=== PATIENT | female | born 1955 | race Caucasian/White ===

== ENCOUNTER → 2016-10-01 | Outpatient (CLI) | payer OTHER ==
[2016-04-11 15:31] VITALS: BP 108/67
[2016-10-01 16:48] LABS: BASOPHILS # (AUTO) 0.1 X10^3/uL (0.0-0.1); BASOPHILS % (AUTO) 0.8 % (0.2-1.0); EOSINOPHILS # (AUTO) 0.2 x10^3/uL (0.0-0.2); EOSINOPHILS % (AUTO) 1.5 % (0.9-2.9); HEMATOCRIT 39.2 % (36.0-47.0); HEMOGLOBIN 13.3 g/dL (12.0-16.0); LYMPHOCYTES # (AUTO) 2.2 X10^3/uL (1.3-2.9); LYMPHOCYTES % (AUTO) 18.9 % (21.0-51.0); MEAN CORPUSCULAR VOLUME 91.2 fL (80.0-100.0); MEAN PLATELET VOLUME 7.7 fL (7.4-11.0); MONOCYTES # (AUTO) 0.6 x10^3/uL (0.3-0.8); MONOCYTES % (AUTO) 5.4 % (0.0-13.0); NEUTROPHILS # (AUTO) 8.7 x10^3/uL (2.2-4.8); NEUTROPHILS % (AUTO) 73.4 % (42.0-75.0); PLATELET COUNT 287 X10^3/uL (150.0-450.0); RED CELL DISTRIBUTION WIDTH 15.2 % (11.6-16.5); WHITE BLOOD COUNT 11.8 X10^3/uL (3.6-10.0)
[2016-10-01 16:55] LABS: BLOOD UREA NITROGEN 15 mg/dL (7-18); CALCIUM 8.7 mg/dL (8.5-10.1); CARBON DIOXIDE 29.6 mmol/L (21-32); CHLORIDE 100 mmol/L (98-107); CREATININE 0.86 mg/dL (0.55-1.02); GLUCOSE 92 mg/dL (65-99); SODIUM 138 mmol/L (136-145); eGFR BLACK RACES > 60 (>60); eGFR NON BLACK RACES > 60 (>60)
[2016-10-02 05:15] LABS: HEMOGLOBIN A1C 6.3 % (4.5-6.2)
== END ==
LOC: LAB 16:29
PROVIDERS: ATTEND Nurse Practitioner Family
DX: N28.89 Other specified disorders of kidney and ureter (principal); Z79.899 Other long term (current) drug therapy
CPT/HCPCS: 36415; 80048; 83036; 85025

== ENCOUNTER → 2016-12-07 | Outpatient (CLI) | payer OTHER ==
[2016-04-11 15:31] VITALS: BP 108/67
--- NOTE | 2016-12-07 15:25 | RAD ---
HISTORY: Right knee pain Study: 3 views of the right knee Comparison: None Findings: No acute fractures or dislocations. Joint spaces are maintained. No knee joint effusion. Soft tissue s are unremarkable. IMPRESSION: 1. No acute abnormality of the right knee. Reported By:
--- NOTE | 2016-12-07 15:28 | RAD ---
HISTORY: Knee pain Study: 3 views of the left knee Comparison: None Findings: No acute fractures or dislocations. Joint spaces are maintained. No knee joint effusion. Soft tissue s are unremarkable. IMPRESSION: 1. No acute abnormality of the left knee. Reported By:
== END ==
LOC: RAD 14:37
PROVIDERS: ATTEND Nurse Practitioner Family
DX: M25.661 Stiffness of right knee, not elsewhere classified (principal)
CPT/HCPCS: 73560

== ENCOUNTER → 2016-12-09 | Outpatient (CLI) | payer OTHER ==
[2016-04-11 15:31] VITALS: BP 108/67
[2016-12-09 08:50] LABS: BASOPHILS # (AUTO) 0.1 X10^3/uL (0.0-0.1); BASOPHILS % (AUTO) 1.2 % (0.2-1.0); EOSINOPHILS # (AUTO) 0.1 x10^3/uL (0.0-0.2); EOSINOPHILS % (AUTO) 1.5 % (0.9-2.9); HEMATOCRIT 40.8 % (36.0-47.0); HEMOGLOBIN 14.4 g/dL (12.0-16.0); LYMPHOCYTES # (AUTO) 1.8 X10^3/uL (1.3-2.9); LYMPHOCYTES % (AUTO) 23.9 % (21.0-51.0); MEAN CORPUSCULAR HEMOGLOBIN 32.5 pg (27.0-34.0); MEAN CORPUSCULAR HGB CONC 35.2 g/dL (33.0-35.0); MEAN CORPUSCULAR VOLUME 92.2 fL (80.0-100.0); MONOCYTES # (AUTO) 0.4 x10^3/uL (0.3-0.8); MONOCYTES % (AUTO) 5.4 % (0.0-13.0); NEUTROPHILS # (AUTO) 5.2 x10^3/uL (2.2-4.8); PLATELET COUNT 304 X10^3/uL (150.0-450.0); RED BLOOD COUNT 4.43 X10^6/uL (3.5-5.4); RED CELL DISTRIBUTION WIDTH 15.5 % (11.6-16.5); RETICULOCYTE % 1.57 % (0.8-2.2); WHITE BLOOD COUNT 7.7 X10^3/uL (3.6-10.0)
[2016-12-09 08:55] LABS: ALANINE AMINOTRANSFERASE 26 Units/L (12-78); ALBUMIN 3.6 g/dL (3.4-5.0); ALKALINE PHOSPHATASE 88 Units/L (46-116); ASPARTATE AMINO TRANSFERASE 16 Units/L (15-37); BLOOD UREA NITROGEN 10 mg/dL (7-18); CALCIUM 8.4 mg/dL (8.5-10.1); CARBON DIOXIDE 27.4 mmol/L (21-32); CHLORIDE 102 mmol/L (98-107); CHOL/HDL RATIO 3.2 (0.0-5.0); CHOLESTEROL 142 mg/dL (0-200); CREATININE 0.81 mg/dL (0.55-1.02); GLUCOSE 100 mg/dL (65-99); HDL CHOLESTEROL 44 mg/dL (40-60); SODIUM 138 mmol/L (136-145); TOTAL PROTEIN 6.9 g/dL (6.4-8.2); TRIGLYCERIDES 83 mg/dL (0-150); eGFR BLACK RACES > 60 (>60); eGFR NON BLACK RACES > 60 (>60)
[2016-12-09 09:41] LABS: ERYTHROCYTE SEDIMENTATION RATE 18 MM/HOUR (0-20)
[2016-12-11 06:25] LABS: VITAMIN D 25 OH 22 ng/mL (30-80)
[2016-12-11 12:41] LABS: METHYLMALONIC ACID 0.11 umol/L (0.00-0.40)
== END ==
LOC: LAB 08:09
PROVIDERS: ATTEND Nurse Practitioner Family
DX: M81.0 Age-related osteoporosis without current pathological fracture (principal); K14.0 Glossitis; R73.02 Impaired glucose tolerance (oral); M25.661 Stiffness of right knee, not elsewhere classified; Z95.1 Presence of aortocoronary bypass graft; Z79.899 Other long term (current) drug therapy
CPT/HCPCS: 36415; 80053; 80061; 82306; 82607; 82615; 82746; 83036; 83918; 85025; 85045; 85652; 86140; 86256; 86340

== ENCOUNTER → 2016-12-15 | Outpatient (CLI) | payer OTHER ==
[2016-04-11 15:31] VITALS: BP 108/67
--- NOTE | 2016-12-15 14:00 | MG ---
HISTORY: SCREENING Comparison: 06/04/2015 FINDINGS: Bilateral CC and MLO projections of the right and left breast were obtained. . fibroglandular tissu e is seen to be present. No significant architectural distortion, mass or clustered microcalcificat ions can be observed to suggest malignancy. No skin thickening or nipple retraction is appreciated. No pathological lymphadenopathy can be identified. IMPRESSION: NO RADIOGRAPHIC EVIDENCE OF MALIGNANCY. ACR CATEGORY I - NEGATIVE EXAM. FOLLOW-UP EXAM 1 YEAR. Diagnostic CAD was utilized and reviewed. * 0 (ZERO) - ASSESSMENT INCOMPLETE; ADDITIONAL IMAGING IS NEEDED. * 1/ (ONE) - NEGATIVE. * 2/II (TWO) - BENIGN FINDINGS. * 3/III (THREE) - PROBABLY BENIGN FINDING; SHORT INTERVAL FOLLOW-UP SUGGESTED. * 4/IV (FOUR) - SUSPICIOUS ABNORMALITY; BIOPSY SHOULD BE CONSIDERED. * 5/V - HIGHLY SUSPICIOUS OF MALIGNANCY; BIOPSY SHOULD BE PERFORMED. A NEGATIVE X-RAY REPORT SHOULD NOT DELAY BIOPSY IF A DOMINANT OR CLINICALLY SUSPICIOUS MASS IS PRESENT; 4 TO 8 PERCENT OF CANCERS ARE NOT IDENTIFIED BY X-RAY. A NEG ATIVE REPORT MAY REINFORCE THE CLINICAL IMPRESSION. ADENOSIS AND DENSE BREASTS MAY OBSCURE AN UNDER LYING NEOPLASM. Reported By:
== END ==
LOC: RAD 09:51
PROVIDERS: ATTEND Nurse Practitioner Family
DX: Z12.31 Encounter for screening mammogram for malignant neoplasm of breast (principal)
CPT/HCPCS: 77067

== ENCOUNTER → 2017-07-27 | Outpatient (CLI) | payer OTHER ==
[2016-04-11 15:31] VITALS: BP 108/67
--- NOTE | 2017-07-28 08:35 | RAD ---
HISTORY: Cough Study: Two views of the chest Comparison: None Findings: The trachea is midline. The cardiac silhouette is unremarkable. subsegmental atelectasis and/or sca rring are noted within the mid right lung. Otherwise the lungs are clear without focal infiltrate or effusion. Aortic knob is partially calcified. Postoperative changes of midline sternotomy are note d. IMPRESSION: 1. No acute cardiopulmonary disease. Reported By:
== END ==
LOC: RAD 16:42
PROVIDERS: ATTEND Psychiatry & Neurology Neurology
DX: J44.0 Chronic obstructive pulmonary disease with (acute) lower respiratory infection (principal)
CPT/HCPCS: 71046

== ENCOUNTER → 2017-09-07 | Outpatient (CLI) | payer OTHER ==
[2016-04-11 15:31] VITALS: BP 108/67
--- NOTE | 2017-09-07 12:56 | RAD ---
Indication: Cough Exam: PA and lateral Comparison: 07/27/2017 Findings: The heart is normal. The pulmonary vessels are normal. The lungs are mildly hyperinflated a nd emphysematous. No consolidation or effusion is seen. There are postop changes seen along the media stinum and sternum. There is mild linear scarring along the lung bases which is unchanged. Impression: Stable chronic changes with no acute abnormality seen. Reported By:
== END ==
LOC: RAD 11:57
PROVIDERS: ATTEND Psychiatry & Neurology Neurology
DX: R05 Cough (principal)
CPT/HCPCS: 71046

== ENCOUNTER → 2017-09-14 | Outpatient (CLI) | payer OTHER ==
[2016-04-11 15:31] VITALS: BP 108/67
[~2017-09-14] MED LIST: NS 100 ML IV 100 ML IV ONE
[2017-09-14 08:59] LABS: CREATININE 0.89 mg/dL (0.55-1.02)
--- NOTE | 2017-09-15 10:26 | CT ---
History: Cough for 3 weeks, previous CABG with stents Study: CT chest without with contrast Findings: [address] imaging through the chest is performed prior to and during the intravenous administration 100 mL of Omnipaque 350. Coronal and sagittal reformatted images are submitted as well . There are no previous CTs of the chest for comparative purposes. Sternal metallic sutures mediastin al clips, coronary stents and coronary calcification is noted. The thoracic aorta is normal in calibe r with no evidence of dissection. No mediastinal or hilar mass or adenopathy is seen. Lungs are clear and there are no pleural effusions. Visualized upper abdominal structures appear unremarkable. Impression: Previous CABG with coronary stents as well. CT of the chest is otherwise Reported By:
== END ==
LOC: RAD 08:32
PROVIDERS: ATTEND Psychiatry & Neurology Neurology
DX: R05 Cough (principal)
CPT/HCPCS: 36415; 71270; 82565; 84520; A4222

== ENCOUNTER → 2017-09-23 | Outpatient (CLI) | payer OTHER ==
[2016-04-11 15:31] VITALS: BP 108/67
== END ==
LOC: RAD 14:10
PROVIDERS: ATTEND Psychiatry & Neurology Neurology
DX: R05 Cough (principal)
CPT/HCPCS: 93306

== ENCOUNTER 2017-10-17 11:41 | Emergency (ER) | payer OTHER ==
[2017-10-17 11:49] VITALS: BP 122/60; BMI 25.7
--- NOTE | 2017-10-17 13:18 | DR.GENAD ---
HPI - PCP Primary Care Physician: LAXMI TysonP - HPI Comment HPI Comment: HISTORY BELOW. - Complaint/Symptoms Chief Complaint Doctors Comments: BODYACHES, TOE PAINS AND COUGH AND CONGESTION TIMES WEEKS. PAST FEW DAYS GETTING WORSE. ALSO HAVING CHEST PAIN AND INCREASING COUGH. LOW GRADE FEVER PRESENT. NO DYSURIA. Chief Complaint:: Pt states she has been sick with coughing/bronchitis since March. Pt has had soreness all over her body but Wednesday her toes and fingers got so sore she coud hardly move - Nurses notes reviewed Nurses Notes Review: Yes - Source History Provided: Patient - Mode of Arrival Mode of Arrival: Ambulatory - Timing Onset of Chief Complaint: 10/20/17 Came on: Suddenly - Duration Duration: Constant Duration: Days - Severity Severity: Moderate PMH - PMH Past Medical History: Yes Past Medical History: Anemia, Anxiety, Arthritis, Asthma, CHF, Coronary Artery Disease, Dyslipidemia, GERD, Gout, Hypertension, Hypothyroidism Past Surgical History: Yes Surgical History: Angioplasty/Stents, Appendectomy, CABG/Valve Surgery, Hysterectomy Past Surgical History Comment: lumpectomy from right breast, multiple skin cancers removed - Family History History of Family Medical Conditions: Yes Family Medical History: Diabetes Mellitus, Coronary Artery Disease Family Medical History Comment: CKD - Social History Does any household member use tobacco: No Alcohol Use: None Do you use any recreational Drugs:: No Lives Where: Home - infectious screening In the last 2 months have you had wt loss of >10#?: NO Have you had fever, night sweats or hemotysis?: No Have you traveled outside the country in the last 6 months?: No Isolation: Standard ROS - Review of Systems Constitutional: Fever, Weakness, Fatigue. negative: Chills Eyes: No Symptoms Reported. negative: Eye Pain, Discharge ENTM: Nose Congestion. negative: Ear Pain, Nose Discharge, Throat Pain Respiratoy: Productive Cough, Short of Breath, Wheezing. negative: Hemoptysis Cardiovascular: Chest Pain (CHEST WALL PAIN) Gastrointestinal/Abdominal: No Symptoms Reported Genitourinary: No Symptoms Reported Neurological: Weakness. negative: Headache, Dizziness Musculoskeletal: Muscle Pain Integumentary: No Symptoms Reported Hematologic/Lymphatic: No Symptoms Reported Endocrine: No Symptoms Reported All Other Systems: Reviewed and Negative PE - Vital Signs Vitals: Temperature 99.0 F Pulse Rate 103 Respiratory Rate 20 Blood Pressure [Left Arm] 106/72 Blood Pressure 122/60 O2 Sat by Pulse Oximetry 95 - General Limitations: No Limitations General Appearance: Alert - Head Head Exam: Normal Inspection - Eyes Eye exam: Normal Appearance - ENT ENT Exam: Normal External Ear Exam External Ear Exam: Normal External Inspection TM/Canal Exam: Bilateral Normal Nose Exam: Normal Nose Exam Mouth Exam: Normal Inspection Throat Exam: Normal Inspection - Neck Neck Exam: Trachea Midline - Chest Chest Inspection: Symmetric Chest Wall Rise - Respiratory Respiratory Exam: Normal Lung Sounds Bilat Respiratory Exam: Bilateral Clear to Auscultation - Cardiovascular Cardiovascular Exam: Regular Rate, Normal Rhythm, Normal Heart Sounds - Abdominal Exam Abdominal Exam: Normal Bowel Sounds, Soft. negative: Tenderness - Extremities Extremities Exam: Normal Inspection - Back Back Exam: Normal Inspection - Neurologic Neurological Exam: Alert, Oriented X3 - Psychiatric Psychiatric Exam: Normal Affect, Normal Mood - Skin Skin Exam: Normal Color MDM - Additional Information Additional Information Obtained From: Family - Differential Diagnosis Differential Diagnosis: CHEST PAIN, BRONCHITIS, PNEUMONIA, MYALGIA, NEUROPATHY. Course - Treatment Treatment: SEE ORDERS. - Education/Counseling Education/Counseling: Patient, Education Educated On: Diagnosis, Needs for Follow Up ROR - Labs Reviewed Laboratory Results Reviewed?: Yes Result Diagrams: 10/17/17 13:41 10/17/17 13:41 Laboratory: WBC 10.8 X10^3/uL (3.6-10.0) H 10/17/17 13:41 RBC 4.28 X10^6/uL (3.5-5.4) 10/17/17 13:41 Hgb 13.7 g/dL (12.0-16.0) 10/17/17 13:41 Hct 38.6 % (36.0-47.0) 10/17/17 13:41 MCV 90.3 fL (80.0-100.0) 10/17/17 13:41 MCH 32.1 pg (27.0-34.0) 10/17/17 13:41 MCHC 35.5 g/dL (33.0-35.0) H 10/17/17 13:41 RDW 15.1 % (11.6-16.5) 10/17/17 13:41 Plt Count 305 X10^3/uL (150.0-450.0) 10/17/17 13:41 MPV 7.8 fL (7.4-11.0) 10/17/17 13:41 Neut % (Auto) 78.4 % (42.0-75.0) H 10/17/17 13:41 Lymph % (Auto) 15.3 % (21.0-51.0) L 10/17/17 13:41 [place] % (Auto) 5.2 % (0.0-13.0) 10/17/17 13:41 Eos % (Auto) 0.6 % (0.9-2.9) L 10/17/17 13:41 Baso % (Auto) 0.5 % (0.2-1.0) 10/17/17 13:41 Neut # (Auto) 8.5 x10^3/uL (2.2-4.8) H 10/17/17 13:41 Lymph # (Auto) 1.7 X10^3/uL (1.3-2.9) 10/17/17 13:41 [place] # (Auto) 0.6 x10^3/uL (0.3-0.8) 10/17/17 13:41 Eos # (Auto) 0.1 x10^3/uL (0.0-0.2) 10/17/17 13:41 Baso # (Auto) 0.1 X10^3/uL (0.0-0.1) 10/17/17 13:41 Absolute Nucleated RBC 0.0 /100WBC 10/17/17 13:41 D-Dimer 399 ng/mL (0-400) 10/17/17 13:41 Sample Site Lr 10/17/17 15:55 ABG pH 7.470 (7.35-7.45) H 10/17/17 15:55 ABG pCO2 41.0 mmHg (35.0-45.0) 10/17/17 15:55 ABG pO2 67.0 mmHg (80.0-100.0) L 10/17/17 15:55 ABG HCO3 29.8 mmol/L (22-26) H 10/17/17 15:55 ABG O2 Saturation 94.0 % (90-100) 10/17/17 15:55 ABG Base Excess 5.6 mmol/L (-2.0-2.0) H 10/17/17 15:55 Arie Test Pos 10/17/17 15:55 A-a Gradient 31.0 mmHg 10/17/17 15:55 FiO2 21.000 10/17/17 15:55 Blood Gas Comments Pt zbigniew well. cdn 10/17/17 15:55 Sodium 134 mmol/L (136-145) L 10/17/17 13:41 Corrected Sodium 134 mmol/L (136-145) L 10/17/17 13:41 Potassium 3.9 mmol/L (3.5-5.1) 10/17/17 13:41 Chloride 97 mmol/L (98-107) L 10/17/17 13:41 Carbon Dioxide 31.9 mmol/L (21-32) 10/17/17 13:41 BUN 15 mg/dL (7-18) 10/17/17 13:41 Creatinine 0.87 mg/dL (0.55-1.02) 10/17/17 13:41 Est GFR (MDRD) Af Amer > 60 (>60) 10/17/17 13:41 Est GFR (MDRD) Non-Af > 60 (>60) 10/17/17 13:41 Glucose 115 mg/dL (65-99) H 10/17/17 13:41 Calcium 9.0 mg/dL (8.5-10.1) 10/17/17 13:41 Corrected Calcium TNP 10/17/17 13:41 Total Bilirubin 0.40 mg/dL (0.2-1.0) 10/17/17 13:41 AST 18 Units/L (15-37) 10/17/17 13:41 ALT 24 Units/L (12-78) 10/17/17 13:41 Alkaline Phosphatase 89 Units/L (46-116) 10/17/17 13:41 Creatine Kinase 119 Units/L (26-192) 10/17/17 13:41 CK-MB (CK-2) < 1.0 ng/mL (0-4.0) 10/17/17 13:41 CK/CKMB % Calc 0.8 % (<4) 10/17/17 13:41 Troponin I < 0.02 ng/mL (0-1.5) 10/17/17 13:41 Total Protein 7.8 g/dL (6.4-8.2) 10/17/17 13:41 Albumin 3.9 g/dL (3.4-5.0) 10/17/17 13:41 Globulin 3.9 g/dL (2.5-4.5) 10/17/17 13:41 Albumin/Globulin Ratio 1.0 Ratio (1.1-2.1) L 10/17/17 13:41 Specimen Type Random urine 10/17/17 14:50 Urine Color Yellow (YELLOW) 10/17/17 14:50 Urine Appearance Clear (CLEAR) 10/17/17 14:50 Urine pH 6.5 (5.0 - 8.0) 10/17/17 14:50 Ur Specific [place] 1.010 (1.000-1.030) 10/17/17 14:50 Urine Protein Negative (NEGATIVE) 10/17/17 14:50 Urine Glucose (UA) Negative (NEGATIVE) 10/17/17 14:50 Urine Ketones Negative (NEGATIVE) 10/17/17 14:50 Urine Occult Blood 1+ (NEGATIVE) 10/17/17 14:50 Urine Nitrite Negative (NEGATIVE) 10/17/17 14:50 Urine Bilirubin Negative (NEGATIVE) 10/17/17 14:50 Urine Urobilinogen Normal (NORMAL) 10/17/17 14:50 Ur Leukocyte Esterase Negative (NEGATIVE) 10/17/17 14:50 Urine RBC 0-2 /HPF (NONE SEEN) 10/17/17 14:50 Urine WBC None seen /HPF (NONE SEEN) 10/17/17 14:50 Ur Squamous Epith Cells Negative /HPF (NEGATIVE) 10/17/17 14:50 Urine Bacteria Negative /HPF (NEGATIVE) 10/17/17 14:50 Ur Culture Indicated? No/not indicated 10/17/17 14:50 - XRAY XRAY Findings: REPORT DISCUSS WITH PATIENT. - Diagnosis Discharge Problem: Bronchitis, SOB (shortness of breath), Myalgia, Neuropathic pain Chest pain Qualifiers: Chest pain type: intercostal pain Qualified Code(s): R07.82 - Intercostal pain - Discharge Plan Disposition: 01 HOME, SELF-CARE Condition: Stable Prescriptions: Benzonatate [TESSALON PERLES *] 200 mg PO TID PRN #30 cap PRN Reason: Cough Ibuprofen [MOTRIN TAB 800 MG *] 800 mg PO Q8H PRN #20 tab PRN Reason: Pain/Inflammation - Follow ups/Referrals Follow ups/Referrals: NFD,None [Primary Care Provider] - 10/18/17 - Instructions Instructions: Shortness of Breath, Adult, [id number], Acute Bronchitis, Adult , [id number], Chest Pain Observation Additional Instructions: RETURN TO ED IF WORSE.
--- NOTE | 2017-10-17 13:42 | RAD ---
HISTORY: Chest pain and shortness of breath. Study: PA and lateral chest. Comparison: CT chest dated September 14, 2017 and chest x-ray dated September 07, 2017. Findings: The trachea is midline. The cardiac silhouette is unremarkable. Postsurgical changes status post CA BG. Left basilar scarring versus atelectasis. Chronic emphysematous changes. No obvious focal consoli dation, pleural effusion, or pneumothorax. The bony thorax is unremarkable. IMPRESSION: No acute cardiopulmonary disease. Reported By:
[2017-10-17 13:53] LABS: BASOPHILS # (AUTO) 0.1 X10^3/uL (0.0-0.1); BASOPHILS % (AUTO) 0.5 % (0.2-1.0); EOSINOPHILS # (AUTO) 0.1 x10^3/uL (0.0-0.2); EOSINOPHILS % (AUTO) 0.6 % (0.9-2.9); HEMATOCRIT 38.6 % (36.0-47.0); HEMOGLOBIN 13.7 g/dL (12.0-16.0); LYMPHOCYTES # (AUTO) 1.7 X10^3/uL (1.3-2.9); LYMPHOCYTES % (AUTO) 15.3 % (21.0-51.0); MEAN CORPUSCULAR HEMOGLOBIN 32.1 pg (27.0-34.0); MEAN CORPUSCULAR HGB CONC 35.5 g/dL (33.0-35.0); MEAN CORPUSCULAR VOLUME 90.3 fL (80.0-100.0); MEAN PLATELET VOLUME 7.8 fL (7.4-11.0); MONOCYTES # (AUTO) 0.6 x10^3/uL (0.3-0.8); MONOCYTES % (AUTO) 5.2 % (0.0-13.0); NEUTROPHILS # (AUTO) 8.5 x10^3/uL (2.2-4.8); NEUTROPHILS % (AUTO) 78.4 % (42.0-75.0); PLATELET COUNT 305 X10^3/uL (150.0-450.0); RED BLOOD COUNT 4.28 X10^6/uL (3.5-5.4); RED CELL DISTRIBUTION WIDTH 15.1 % (11.6-16.5); WHITE BLOOD COUNT 10.8 X10^3/uL (3.6-10.0)
[2017-10-17 14:09] LABS: BLOOD UREA NITROGEN 15 mg/dL (7-18); CARBON DIOXIDE 31.9 mmol/L (21-32); CHLORIDE 97 mmol/L (98-107); COR NA(FOR HYPERGLY) 134 mmol/L (136-145); CREATININE 0.87 mg/dL (0.55-1.02); SODIUM 134 mmol/L (136-145); TROPONIN I < 0.02 ng/mL (0-1.5); eGFR BLACK RACES > 60 (>60); eGFR NON BLACK RACES > 60 (>60)
[2017-10-17 14:13] LABS: ALANINE AMINOTRANSFERASE 24 Units/L (12-78); ALBUMIN 3.9 g/dL (3.4-5.0); ALKALINE PHOSPHATASE 89 Units/L (46-116); ASPARTATE AMINO TRANSFERASE 18 Units/L (15-37); CREATINE KINASE 119 Units/L (26-192); CREATINE KINASE MB < 1.0 ng/mL (0-4.0); TOTAL PROTEIN 7.8 g/dL (6.4-8.2)
[2017-10-17 14:15] LABS: CKMB % 0.8 % (<4)
[2017-10-17 14:59] LABS: BILIRUBIN,URINE NEGATIVE (NEGATIVE); BLOOD/HEMOGLOBIN,URINE 1+ (NEGATIVE); GLUCOSE, URINE NEGATIVE (NEGATIVE); KETONES,URINE NEGATIVE (NEGATIVE); LEUKOCYTE ESTERASE ,URINE NEGATIVE (NEGATIVE); NITRITES,URINE NEGATIVE (NEGATIVE); PH,URINE 6.5 (5.0 - 8.0); PROTEIN,URINE NEGATIVE (NEGATIVE); UROBILINOGEN,URINE NORMAL (NORMAL)
[2017-10-17 15:00] LABS: APPEARANCE,URINE CLEAR (CLEAR); COLOR,URINE YELLOW (YELLOW)
[2017-10-17 15:05] LABS: BACTERIA,URINE NEGATIVE /HPF (NEGATIVE); RBC,URINE 0-2 /HPF (NONE SEEN); SQUAMOUS EPITHELIAL CELL,UR NEGATIVE /HPF (NEGATIVE)
[2017-10-17 16:01] LABS: ABG ALLEN TEST POS; ABG BASE EXCESS 5.6 mmol/L (-2.0-2.0); ABG HCO3 29.8 mmol/L (22-26)
== END 2017-10-17 16:39 | disposition home or self-care (01) ==
LOC: ER 11:51
DX: J40 Bronchitis, not specified as acute or chronic (principal); R06.02 Shortness of breath; M79.1 Myalgia; M79.2 Neuralgia and neuritis, unspecified; R07.82 Intercostal pain; R94.31 Abnormal electrocardiogram [ECG] [EKG]
CPT/HCPCS: 36415; 36600; 71046; 80053; 81001; 82550; 82553; 82803; 84484; 85025; 85378; 93005; 93010; 99283

== ENCOUNTER → 2017-11-08 | Outpatient (CLI) | payer OTHER ==
[2017-10-17 11:49] VITALS: BP 122/60
--- NOTE | 2017-11-08 11:59 | CT ---
HISTORY: Subacute history of syncope, fall, neck pain Study: CT brain without contrast Comparison: June 04, 2014 Technique: Multiple axial images of the brain were obtained from the skull base to the vertex withou t administration of IV contrast. Findings: No acute intraparenchymal hemorrhage or mass can be identified. No extra-axial fluid collections are seen. No alteration in the attenuation of the brain parenchyma can be identified to suggest acute o r subacute ischemic change. The ventricular system is symmetric and nondilated. The extracranial st ructures are grossly unremarkable. IMPRESSION: No acute intracranial process can be identified. Reported By:
--- NOTE | 2017-11-08 12:23 | CT ---
Indication: Status post fall 1 week ago with persistent neck pain. Exam: CT cervical spine without contrast. Comparison: MRI cervical spine 01/14/2010. Technique: Axial spiral images were obtained from the base the skull through the upper thoracic spine and reconstructed in the axial plane at 2 mm intervals. Coronal and sagittal multiplanar reconstruct ions were performed. Findings: The cervical vertebra are well aligned. There is a mild compression deformity along the sup erior endplate of C7 which is grossly unchanged from the prior MRI . There is moderate disc space yuriy rowing throughout the lower cervical spine which is most severe at C5-6 and C6-7 with prominent howard nal osteophytes at both levels. No displaced or retropulsed fragment is seen. The posterior elements are intact. The prevertebral soft tissues are normal. The atlantoaxial joint is normal. There are ill -defined moderate disc osteophyte complexes at C5-6 and C6-7 causing at least moderately severe dural sac compression. There is mild mucosal thickening along the base of left maxillary sinus. The lung a pices are clear. Impression: Mild old compression fracture of C7 which is unchanged with no acute abnormality seen. Moderate degenerative disc changes throughout the lower cervical spine which is most severe at C5-6 a nd C6-7 with prominent disc osteophyte complexes at both levels . If the patient is persistently symp tomatic, suggest MRI for further characterization of the discs. Reported By:
== END ==
LOC: RAD 10:46
PROVIDERS: ATTEND Psychiatry & Neurology Neurology
DX: M50.322 Other cervical disc degeneration at C5-C6 level (principal); Z91.81 History of falling; R42 Dizziness and giddiness
CPT/HCPCS: 70450; 72125

== ENCOUNTER 2020-01-24 22:02 | Observation (INO) ==
[~2020-01-24 22:02] MED LIST changes: +DIPRIVAN VIAL ONE; +NEOSTIGMINE INJ ONE; +NORCURON INJ 10 MG VIAL ONE; -NS 100 ML IV 100 ML IV ONE; +QUELICIN (OR ANECTINE) ONE; +ROBINUL ONE; +SUPRANE ONE; +TORADOL 30 MG VIAL ONE; +VERSED ONE; +ZOFRAN INJ 4 MG VIAL ONE
[2020-01-24 22:48] LABS: BASOPHILS % (AUTO) 0.2 % (0.2-1.0); EOSINOPHILS # (AUTO) 0.1 x10^3/uL (0.0-0.2); EOSINOPHILS % (AUTO) 1.1 % (0.9-2.9); HEMATOCRIT 35.5 % (36.0-47.0); LYMPHOCYTES # (AUTO) 0.4 X10^3/uL (1.3-2.9); LYMPHOCYTES % (AUTO) 3.8 % (21.0-51.0); MEAN CORPUSCULAR HEMOGLOBIN 31.3 pg (27.0-34.0); MEAN CORPUSCULAR HGB CONC 33.8 g/dL (33.0-35.0); MEAN CORPUSCULAR VOLUME 92.7 fL (80.0-100.0); MEAN PLATELET VOLUME 7.8 fL (7.4-11.0); MONOCYTES # (AUTO) 0.3 x10^3/uL (0.3-0.8); NEUTROPHILS # (AUTO) 9.8 x10^3/uL (2.2-4.8); NEUTROPHILS % (AUTO) 91.9 % (42.0-75.0); PLATELET COUNT 226 X10^3/uL (150.0-450.0); RED BLOOD COUNT 3.83 X10^6/uL (3.5-5.4); RED CELL DISTRIBUTION WIDTH 15.1 % (11.6-16.5); WHITE BLOOD COUNT 10.6 X10^3/uL (3.6-10.0)
[2020-01-24 22:55] LABS: PLATELET MORPHOLOGY COMMENT NORMAL (NORMAL)
[2020-01-24 22:59] LABS: ALANINE AMINOTRANSFERASE 47 Units/L (12-78); ALBUMIN 2.8 g/dL (3.4-5.0); ALKALINE PHOSPHATASE 95 Units/L (46-116); ASPARTATE AMINO TRANSFERASE 34 Units/L (15-37); BLOOD UREA NITROGEN 12 mg/dL (7-18); CALCIUM 8.2 mg/dL (8.5-10.1); CHLORIDE 98 mmol/L (98-107); COR CA(FOR HYPOALB) 9.2 mg/dL (8.5-10.1); COR NA(FOR HYPERGLY) 135 mmol/L (136-145); CREATININE 0.96 mg/dL (0.55-1.02); SODIUM 133 mmol/L (136-145); TOTAL PROTEIN 5.5 g/dL (6.4-8.2); eGFR NON BLACK RACES > 60 (>60)
--- NOTE | 2020-01-24 23:05 | DR.GENAD ---
HPI Time Seen Time Seen by Provider: 01/24/20 22:30 PCP Primary Care Physician: eliu Complaint/Symptoms Chief Complaint Doctors Comments: A 64 y/o female presents to the ED with c/o light headedness and seeing spots before his eyes. There was no palpitations or chest pain. EMS got initial BP reading of 90/60 and a follow-up reading of 115/65. She has a hx. of HTN and CAD. She states she did not take her BP meds today and has been off Plavix x 1 week. She also states that a Nurse had told her about her liver being "nicked" during the procedure. Chief Complaint:: pt states" I had my gallbladder removed today and the nurse told me they nicked my liver and I guess they sent me home to bleed to and " pt c/o having a real low blood pressure and seeing spots when i stood up" COVID-19 Coronavirus risk:travel/contact w/high risk person: No Has patient experienced Coronavirus symptoms: No Source History Provided: Patient Mode of Arrival Mode of Arrival: Ambulatory Timing Onset of Chief Complaint: 01/24/20 PMH PMH Past Medical History: Yes Past Medical History: Anemia, Anxiety, Arthritis, Asthma, CHF, Coronary Artery Disease, Dyslipidemia, GERD, Gout, Hypertension and Hypothyroidism Past Surgical History: Yes Surgical History: Angioplasty/Stents and Cholecystectomy Family History History of Family Medical Conditions: Yes Family Medical History: Diabetes Mellitus and Coronary Artery Disease Social History Type of Tobacco Use: Cigarettes Does any household member use tobacco: Yes Alcohol Use: Occasionally Do you use any recreational Drugs:: No Lives Where: Home Travel Risk Coronavirus risk:travel/contact w/high risk person: No Has patient experienced Coronavirus symptoms: No Infectious screening In the last 2 months have you had wt loss of >10#?: NO Have you had fever, night sweats or hemotysis?: No Have you traveled outside the country in the last 6 months?: No Isolation: Standard ROS Review of Systems Constitutional: No Symptoms Reported Eyes: No Symptoms Reported ENTM: No Symptoms Reported Respiratoy: No Symptoms Reported Cardiovascular: No Symptoms Reported Gastrointestinal/Abdominal: No Symptoms Reported Genitourinary: No Symptoms Reported Neurological: Other (lightheaded) Musculoskeletal: No Symptoms Reported Integumentary: No Symptoms Reported Hematologic/Lymphatic: No Symptoms Reported Endocrine: No Symptoms Reported Psychiatric: No Symptoms Reported PE Vital Signs Vitals: Temperature 98.8 F Pulse Rate 88 Respiratory Rate 18 Blood Pressure [Left Arm] 129/76 Blood Pressure 111/60 O2 Sat by Pulse Oximetry 99 General Limitations: No Limitations General Appearance: Alert and In No Apparent Distress Head Head Exam: Normal Inspection, Atraumatic and Normocephalic Eyes Eye exam: Normal Appearance and EOMI ENT ENT Exam: Normal Exam, Normal Oropharynx, Normal External Ear Exam and Mucous Membranes Moist Neck Neck Exam: Normal Inspection, Full ROM and Trachea Midline Chest Chest Inspection: Normal Inspection and Symmetric Chest Wall Rise Respiratory Respiratory Exam: Normal Lung Sounds Bilat Cardiovascular Cardiovascular Exam: Regular Rate, Normal Rhythm, Normal Heart Sounds, +S1 and +S2 Abdominal Exam Abdominal Exam: Normal Inspection, Normal Bowel Sounds, Soft and Tenderness Abdominal Tenderness: RUQ and Epigastrium Extremities Extremities Exam: Normal Inspection and Full ROM Back Back Exam: Normal Inspection and Full ROM Neurologic Neurological Exam: Alert and Oriented X3 Psychiatric Psychiatric Exam: Normal Affect and Normal Mood Skin Skin Exam: Dry and Normal Color COURSE Reevaluation 1st: Improved Education/Counseling Education/Counseling: Patient, Family and Education Educated On: Treatment, Diagnosis, Prognosis and Needs for Follow Up ROR Labs Reviewed Laboratory Results Reviewed?: Yes Result Diagrams: 01/24/20 22:35 01/24/20 22:35 Laboratory: WBC 10.6 X10^3/uL (3.6-10.0) H 01/24/20 22:35 RBC 3.83 X10^6/uL (3.5-5.4) 01/24/20 22:35 Hgb 12.0 g/dL (12.0-16.0) 01/24/20 22:35 Hct 35.5 % (36.0-47.0) L 01/24/20 22:35 MCV 92.7 fL (80.0-100.0) 01/24/20 22:35 MCH 31.3 pg (27.0-34.0) 01/24/20 22:35 MCHC 33.8 g/dL (33.0-35.0) 01/24/20 22:35 RDW 15.1 % (11.6-16.5) 01/24/20 22:35 Plt Count 226 X10^3/uL (150.0-450.0) 01/24/20 22:35 Plt Count Comment Adequate (ADEQUATE) 01/24/20 22: MPV 7.8 fL (7.4-11.0) 01/24/20 22:35 Neut % (Auto) 91.9 % (42.0-75.0) H 01/24/20 22:35 Lymph % (Auto) 3.8 % (21.0-51.0) L 01/24/20 22:35 [place] % (Auto) 3.0 % (0.0-13.0) 01/24/20 22:35 Eos % (Auto) 1.1 % (0.9-2.9) 01/24/20 22:35 Baso % (Auto) 0.2 % (0.2-1.0) 01/24/20 22:35 Neut # (Auto) 9.8 x10^3/uL (2.2-4.8) H 01/24/20 22:35 Lymph # (Auto) 0.4 X10^3/uL (1.3-2.9) L 01/24/20 22:35 [place] # (Auto) 0.3 x10^3/uL (0.3-0.8) 01/24/20 22:35 Eos # (Auto) 0.1 x10^3/uL (0.0-0.2) 01/24/20 22:35 Baso # (Auto) 0.0 X10^3/uL (0.0-0.1) 01/24/20 22:35 Absolute Nucleated RBC 0.0 /100WBC 01/24/20 22: Total Counted 100 01/24/20 22: Neutrophils % (Manual) 92 % (39-76) H 01/24/20 22:35 Lymphocytes % (Manual) 6 % (13-43) L 01/24/20 22:35 Monocytes % (Manual) 2 % (4-9) L 01/24/20 22:35 Plt Morphology Comment Normal (NORMAL) 01/24/20: RBC Morphology Normal (NORMAL) 01/24/20 22:35 Sodium 133 mmol/L (136-145) L 01/24/20 22:35 Corrected Sodium 135 mmol/L (136-145) L 01/24/20 22:35 Potassium 3.4 mmol/L (3.5-5.1) L 01/24/20 22:35 Chloride 98 mmol/L (98-107) 01/24/20 22:35 Carbon Dioxide 28.0 mmol/L (21-32) 01/24/20 22:35 BUN 12 mg/dL (7-18) 01/24/20 22:35 Creatinine 0.96 mg/dL (0.55-1.02) 01/24/20 22:35 Est GFR (MDRD) Af Amer > 60 (>60) 01/24/20 22:35 Est GFR (MDRD) Non-Af > 60 (>60) 01/24/20 22:35 Glucose 195 mg/dL (65-99) H 01/24/20 22:35 Calcium 8.2 mg/dL (8.5-10.1) L 01/24/20 22:35 Corrected Calcium 9.2 mg/dL (8.5-10.1) 01/24/20 22:35 Total Bilirubin 0.40 mg/dL (0.2-1.0) 01/24/20 22:35 AST 34 Units/L (15-37) 01/24/20 22:35 ALT 47 Units/L (12-78) 01/24/20 22:35 Alkaline Phosphatase 95 Units/L (46-116) 01/24/20 22:35 Total Protein 5.5 g/dL (6.4-8.2) L 01/24/20 22:35 Albumin 2.8 g/dL (3.4-5.0) L 01/24/20 22:35 Globulin 2.7 g/dL (2.5-4.5) 01/24/20 22:35 Albumin/Globulin Ratio 1.0 Ratio (1.1-2.1) L 01/24/20 22:35 Opioid Opioid Risk Tool Age (Michael box if 16-45): No History of Preadolescent Sexual Abuse: No Total: 0 Total Score Risk Category: Low Risk Copyright: Bulmaro HIRSCH predicting aberrant behaviors Diagnosis Discharge Problem: Acute hypotension, S/P laparoscopic cholecystectomy CAD (coronary artery disease) Qualifiers: Coronary Disease-Associated Artery/Lesion type: [place] artery [place] vs. tra nsplanted heart: [place] heart Associated angina: without angina Qualified Code(s): I25.10 - Atherosclerotic heart disease of [place] coronary artery without angina pectoris Insomnia Qualifiers: Insomnia type: primary Qualified Code(s): F51.01 - Primary insomnia
[2020-01-24] MEDS ORDERED: PROTONIX TAB 40 MG PO ONE ×2 (23:42→23:49)
[2020-01-24] MEDS ORDERED: KLOR-CON PO ONE (23:44)
[2020-01-24] MEDS ORDERED: K-DUR TAB 20 MEQ PO ONE ×2 (23:50)
[2020-01-25 01:03] VITALS: BMI 28.0
[2020-01-25] MEDS: NS 1000 ML 1,000 ML IV SCH ×2 (01:18→10:47)
[2020-01-25 05:35] LABS: BASOPHILS % (AUTO) 0.3 % (0.2-1.0); EOSINOPHILS # (AUTO) 0.2 x10^3/uL (0.0-0.2); EOSINOPHILS % (AUTO) 2.2 % (0.9-2.9); HEMATOCRIT 32.2 % (36.0-47.0); LYMPHOCYTES # (AUTO) 0.7 X10^3/uL (1.3-2.9); LYMPHOCYTES % (AUTO) 8.2 % (21.0-51.0); MEAN CORPUSCULAR HEMOGLOBIN 31.7 pg (27.0-34.0); MEAN CORPUSCULAR HGB CONC 34.2 g/dL (33.0-35.0); MEAN CORPUSCULAR VOLUME 92.6 fL (80.0-100.0); MEAN PLATELET VOLUME 8.2 fL (7.4-11.0); MONOCYTES # (AUTO) 0.3 x10^3/uL (0.3-0.8); MONOCYTES % (AUTO) 3.9 % (0.0-13.0); NEUTROPHILS # (AUTO) 7.4 x10^3/uL (2.2-4.8); NEUTROPHILS % (AUTO) 85.4 % (42.0-75.0); PLATELET COUNT 214 X10^3/uL (150.0-450.0); RED BLOOD COUNT 3.48 X10^6/uL (3.5-5.4); RED CELL DISTRIBUTION WIDTH 14.5 % (11.6-16.5); WHITE BLOOD COUNT 8.7 X10^3/uL (3.6-10.0)
[2020-01-25 05:52] LABS: ALANINE AMINOTRANSFERASE 44 Units/L (12-78); ALBUMIN 2.5 g/dL (3.4-5.0); ALKALINE PHOSPHATASE 82 Units/L (46-116); ASPARTATE AMINO TRANSFERASE 34 Units/L (15-37); BLOOD UREA NITROGEN 10 mg/dL (7-18); CALCIUM 8.1 mg/dL (8.5-10.1); CARBON DIOXIDE 28.7 mmol/L (21-32); CHLORIDE 104 mmol/L (98-107); COR CA(FOR HYPOALB) 9.3 mg/dL (8.5-10.1); CREATININE 0.77 mg/dL (0.55-1.02); SODIUM 137 mmol/L (136-145); TOTAL PROTEIN 5.2 g/dL (6.4-8.2); eGFR NON BLACK RACES > 60 (>60)
[2020-01-25 11:39] VITALS: BP 102/50
== END 2020-01-25 12:00 | disposition home or self-care (01) ==
LOC: ER 22:03 → MED/SURG 22:03
PROVIDERS: ADMIT Surgery; ATTEND Surgery
DX: Z79.01 Long term (current) use of anticoagulants; F41.8 Other specified anxiety disorders; K66.0 Peritoneal adhesions (postprocedural) (postinfection); F51.01 Primary insomnia; I25.10 Atherosclerotic heart disease of native coronary artery without angina pectoris; K81.1 Chronic cholecystitis; Z98.890 Other specified postprocedural states; K82.8 Other specified diseases of gallbladder; I10 Essential (primary) hypertension; E78.2 Mixed hyperlipidemia; R73.09 Other abnormal glucose; Z90.49 Acquired absence of other specified parts of digestive tract; I95.89 Other hypotension; K21.9 Gastro-esophageal reflux disease without esophagitis
CPT/HCPCS: 36415; 80053; 85025; 96360; 96361; 96365; 99284; A4216; A4222; G0378; J0330; J0690; J1885; J2250; J2405; J2704; J2710; J3010; J3490; J7030; J7120

== ENCOUNTER 2023-03-06 12:22 | Observation (INO) ==
--- NOTE | 2023-03-06 12:35 | DR.CP ---
HPI Time Seen Time Seen by Provider: 03/06/23 12:35 COVID-19 Coronavirus risk:travel/contact w/high risk person: No Has patient experienced Coronavirus symptoms: No Reviewed Nurses Notes Review: Yes PMH PMH Past Medical History: Arthritis, Coronary Artery Disease and Hypertension Past Surgical History: Yes Surgical History: Angioplasty/Stents, Appendectomy, Cholecystectomy and Hysterectomy Family History Family Medical History: Diabetes Mellitus and Heart Failure Social History Do you use any recreational Drugs:: No PE Vitals Vitals: Vital Signs Temperature 98.1 F Pulse Rate 74 Pulse Rate 73 Pulse Rate 75 Pulse Rate 74 Pulse Rate 74 Pulse Rate 77 Pulse Rate 84 Pulse Rate 86 Pulse Rate 78 Pulse Rate 74 Pulse Rate 75 Pulse Rate 75 Pulse Rate 74 Pulse Rate 71 Pulse Rate 75 Pulse Rate 72 Pulse Rate 72 Pulse Rate 74 Pulse Rate 73 Pulse Rate 74 Pulse Rate 74 Pulse Rate 74 Pulse Rate 78 Pulse Rate 81 Pulse Rate 83 Pulse Rate 82 Pulse Rate 85 Pulse Rate 84 Respiratory Rate 18 Respiratory Rate 27 Respiratory Rate 22 Respiratory Rate 29 Respiratory Rate 18 Respiratory Rate 22 Respiratory Rate 14 Respiratory Rate 19 Respiratory Rate 29 Respiratory Rate 18 Respiratory Rate 33 Respiratory Rate 23 Respiratory Rate 23 Respiratory Rate 41 Respiratory Rate 19 Respiratory Rate 19 Respiratory Rate 19 Respiratory Rate 27 Respiratory Rate 19 Respiratory Rate 26 Respiratory Rate 19 Respiratory Rate 21 Respiratory Rate 18 Respiratory Rate 20 Respiratory Rate 24 Respiratory Rate 36 Respiratory Rate 20 Respiratory Rate 24 Respiratory Rate 22 Respiratory Rate 46 Respiratory Rate 48 Respiratory Rate 19 Blood Pressure 147/70 Blood Pressure 129/59 Blood Pressure 129/59 Blood Pressure 143/74 Blood Pressure 123/57 Blood Pressure 124/60 Blood Pressure 124/60 Blood Pressure 128/64 Blood Pressure 125/64 Blood Pressure 93/51 Blood Pressure 93/51 Blood Pressure 98/53 Blood Pressure 98/53 Blood Pressure 100/58 Blood Pressure 100/58 Blood Pressure 109/61 Blood Pressure 102/57 Blood Pressure 98/61 Blood Pressure 109/64 Blood Pressure 102/58 Blood Pressure 114/67 Blood Pressure 126/59 Blood Pressure 126/59 Blood Pressure 134/77 Blood Pressure 134/77 Blood Pressure 134/77 O2 Sat by Pulse Oximetry 94 O2 Sat by Pulse Oximetry 96 O2 Sat by Pulse Oximetry 90 O2 Sat by Pulse Oximetry 95 O2 Sat by Pulse Oximetry 100 O2 Sat by Pulse Oximetry 95 O2 Sat by Pulse Oximetry 97 O2 Sat by Pulse Oximetry 95 O2 Sat by Pulse Oximetry 92 O2 Sat by Pulse Oximetry 97 O2 Sat by Pulse Oximetry 94 O2 Sat by Pulse Oximetry 94 O2 Sat by Pulse Oximetry 97 O2 Sat by Pulse Oximetry 96 O2 Sat by Pulse Oximetry 98 O2 Sat by Pulse Oximetry 97 O2 Sat by Pulse Oximetry 97 O2 Sat by Pulse Oximetry 96 O2 Sat by Pulse Oximetry 96 O2 Sat by Pulse Oximetry 95 O2 Sat by Pulse Oximetry 93 O2 Sat by Pulse Oximetry 96 O2 Sat by Pulse Oximetry 97 O2 Sat by Pulse Oximetry 92 O2 Sat by Pulse Oximetry 94 O2 Sat by Pulse Oximetry 96 O2 Sat by Pulse Oximetry 95 O2 Sat by Pulse Oximetry 97 ROR Labs Reviewed 03/06/23 12:45 03/06/23 12:45 Laboratory: WBC 7.4 X10^3/uL (3.6-10.0) 03/06/23 12:45 RBC 4.34 X10^6/uL (3.5-5.4) 03/06/23 12:45 Hgb 13.2 g/dL (12.0-16.0) 03/06/23 12:45 Hct 38.6 % (36.0-47.0) 03/06/23 12:45 MCV 89.0 fL (80.0-100.0) 03/06/23 12:45 MCH 30.5 pg (27.0-34.0) 03/06/23 12:45 MCHC 34.3 g/dL (33.0-35.0) 03/06/23 12:45 RDW 15.2 % (11.6-16.5) 03/06/23 12:45 Plt Count 281 X10^3/uL (150.0-450.0) 03/06/23 12:45 MPV 7.7 fL (7.4-11.0) 03/06/23 12:45 Neut % (Auto) 66.8 % (42.0-75.0) 03/06/23 12:45 Lymph % (Auto) 23.6 % (21.0-51.0) 03/06/23 12:45 [place] % (Auto) 6.4 % (0.0-13.0) 03/06/23 12:45 Eos % (Auto) 2.3 % (0.9-2.9) 03/06/23 12:45 Baso % (Auto) 0.9 % (0.2-1.0) 03/06/23 12:45 Neut # (Auto) 4.9 x10^3/uL (2.2-4.8) H 03/06/23 12:45 Lymph # (Auto) 1.7 X10^3/uL (1.3-2.9) 03/06/23 12:45 [place] # (Auto) 0.5 x10^3/uL (0.3-0.8) 03/06/23 12:45 Eos # (Auto) 0.2 x10^3/uL (0.0-0.2) 03/06/23 12:45 Baso # (Auto) 0.1 X10^3/uL (0.0-0.1) 03/06/23 12:45 Absolute Nucleated RBC 0.0 /100WBC 03/06/23 12:45 D-Dimer 0.31 ug/ml (0.0-0.57) 03/06/23 12:45 Sodium 135 mmol/L (136-145) L 03/06/23 12:45 Corrected Sodium 136 mmol/L (136-145) 03/06/23 12:45 Potassium 3.6 mmol/L (3.5-5.1) 03/06/23 12:45 Chloride 97 mmol/L (98-107) L 03/06/23 12:45 Carbon Dioxide 28.3 mmol/L (21-32) 03/06/23 12:45 BUN 19 mg/dL (7-18) H 03/06/23 12:45 Creatinine 0.87 mg/dL (0.55-1.02) 03/06/23 12:45 Est GFR (MDRD) Af Amer > 60 (>60) 03/06/23 12:45 Est GFR (MDRD) Non-Af > 60 (>60) 03/06/23 12:45 Glucose 122 mg/dL (65-99) H 03/06/23 12:45 Calcium 8.6 mg/dL (8.5-10.1) 03/06/23 12:45 Corrected Calcium 9.2 mg/dL (8.5-10.1) 03/06/23 12:45 Total Bilirubin 0.30 mg/dL (0.2-1.0) 03/06/23 12:45 AST 14 Units/L (15-37) L 03/06/23 12:45 ALT 19 Units/L (12-78) 03/06/23 12:45 Alkaline Phosphatase 89 Units/L (46-116) 03/06/23 12:45 Creatine Kinase 49 Units/L (26-192) 03/06/23 16:04 Troponin I High Sens < 4.0 ng/L (4.0-60.0) L 03/06/23 16:04 B-Natriuretic Peptide 9.4 pg/mL (0-79) 03/06/23 12:45 Total Protein 7.0 g/dL (6.4-8.2) 03/06/23 12:45 Albumin 3.3 g/dL (3.4-5.0) L 03/06/23 12:45 Globulin 3.7 g/dL (2.5-4.5) 03/06/23 12:45 Albumin/Globulin Ratio 0.9 Ratio (1.1-2.1) L 03/06/23 12:45 Opioid Opioid Risk Tool Age (Michael box if 16-45): No History of Preadolescent Sexual Abuse: No Total: 0 Total Score Risk Category: Low Risk Copyright: Bulmaro HIRSCH predicting aberrant behaviors Discharge Plan Diagnosis Discharge Problem: Chest pain in adult, SOB (shortness of breath) Discharge Plan Patient Disposition: ADMITTED INPATIENT Condition: Stable
[2023-03-06] MEDS ORDERED: NITROSTAT SL PRN ×2 (12:39→17:24)
[2023-03-06 12:43] VITALS: BMI 27.6
[2023-03-06] MEDS ORDERED: ASPIRIN 81 MG CHEWTAB ONE (12:46)
[2023-03-06] MEDS ORDERED: NITROSTAT ONE (12:46)
[2023-03-06] MEDS ORDERED: NS 250 ML IV 250 ML IV ONE (12:46)
--- NOTE | 2023-03-06 12:51 | EKG ---
Test Reason : chest pain Blood Pressure : */* mmHG Vent. Rate : 84 BPM Atrial Rate : 84 BPM P-R Int : 170 ms QRS Dur : 150 ms QT Int : 410 ms P-R-T Axes : 71 165 46 degrees QTc Int : 484 ms Normal sinus rhythm Right bundle branch block Left posterior fascicular block Bifascicular block Inferior infarct , age undetermined Abnormal ECG When compared with ECG of 04-OCT-2022 23:15, Left posterior fascicular block is now present Inferior infarct is now present Confirmed by Red Lorenzo ([id number]) on 03/09/2023 7:29:54 AM Referred By: Confirmed By: Red Lorenzo
[2023-03-06 12:54] LABS: BASOPHILS # (AUTO) 0.1 X10^3/uL (0.0-0.1); BASOPHILS % (AUTO) 0.9 % (0.2-1.0); EOSINOPHILS # (AUTO) 0.2 x10^3/uL (0.0-0.2); EOSINOPHILS % (AUTO) 2.3 % (0.9-2.9); HEMATOCRIT 38.6 % (36.0-47.0); HEMOGLOBIN 13.2 g/dL (12.0-16.0); LYMPHOCYTES # (AUTO) 1.7 X10^3/uL (1.3-2.9); LYMPHOCYTES % (AUTO) 23.6 % (21.0-51.0); MEAN CORPUSCULAR HEMOGLOBIN 30.5 pg (27.0-34.0); MEAN CORPUSCULAR HGB CONC 34.3 g/dL (33.0-35.0); MEAN PLATELET VOLUME 7.7 fL (7.4-11.0); MONOCYTES # (AUTO) 0.5 x10^3/uL (0.3-0.8); MONOCYTES % (AUTO) 6.4 % (0.0-13.0); NEUTROPHILS # (AUTO) 4.9 x10^3/uL (2.2-4.8); NEUTROPHILS % (AUTO) 66.8 % (42.0-75.0); PLATELET COUNT 281 X10^3/uL (150.0-450.0); RED BLOOD COUNT 4.34 X10^6/uL (3.5-5.4); RED CELL DISTRIBUTION WIDTH 15.2 % (11.6-16.5); WHITE BLOOD COUNT 7.4 X10^3/uL (3.6-10.0)
[2023-03-06] MEDS ORDERED: ASPIRIN 81 MG CHEWTAB PO SCH (13:00)
[2023-03-06] MEDS ORDERED: NS 1,000 ML IV 1,000 ML IV SCH (13:00)
[2023-03-06] MEDS ORDERED: NS 250 ML IV 250 ML IV SCH (13:00)
[2023-03-06 13:05] LABS: ALANINE AMINOTRANSFERASE 19 Units/L (12-78); ALBUMIN 3.3 g/dL (3.4-5.0); ALKALINE PHOSPHATASE 89 Units/L (46-116); ASPARTATE AMINO TRANSFERASE 14 Units/L (15-37); BLOOD UREA NITROGEN 19 mg/dL (7-18); CALCIUM 8.6 mg/dL (8.5-10.1); CARBON DIOXIDE 28.3 mmol/L (21-32); CHLORIDE 97 mmol/L (98-107); COR CA(FOR HYPOALB) 9.2 mg/dL (8.5-10.1); COR NA(FOR HYPERGLY) 136 mmol/L (136-145); CREATINE KINASE 52 Units/L (26-192); CREATININE 0.87 mg/dL (0.55-1.02); GLUCOSE 122 mg/dL (65-99); POTASSIUM 3.6 mmol/L (3.5-5.1); SODIUM 135 mmol/L (136-145); eGFR NON BLACK RACES > 60 (>60)
[2023-03-06] MEDS ORDERED: MORPHINE SULFATE INJ 2 MG INJ IVP ONE (14:02)
[2023-03-06] MEDS ORDERED: ZOFRAN INJ 4 MG VIAL IVP ONE (14:02)
[2023-03-06] MEDS ORDERED: ZOFRAN INJ 4 MG VIAL ONE (14:03)
[2023-03-06] MEDS ORDERED: MORPHINE SULFATE INJ 2 MG INJ ONE (14:03)
[2023-03-06] MEDS ORDERED: OMNIPAQUE 350 mg/mL 100 mL BTL 100 ML ONE (14:52)
--- NOTE | 2023-03-06 15:32 | CT ---
HISTORYPt states that she always has chest pain but this am she woke with constant pressure like midsternal chest pain that radiates through to her back that is accompanied by shortness of breath. Hypertension.STUDYCHEST WITH CONCOMPARISONNoneTECHNIQUEMultiple CT axial images of the chest were obtained with IV contrast. Coronal and sagittal images were reconstructed. Dose reduction techniques included Automated Exposure Control (AEC) and adjustment of mA and kV.FINDINGSThe heart is normal in size. Atherosclerotic calcification is present in the coronary arteries.The pulmonary artery and aorta have a normal caliber. No central pulmonary emboli. No aortic dissection. No mediastinal mass or significant lymphadenopathy.The thyroid has a normal size and configuration. No axillary mass or significant axillary lymphadenopathy is identified.The lungs are well inflated with no pneumonia or pleural effusion. A few linear areas in the lower lungs are probably focal areas of scarring or atelectasis.Limited views of the upper abdomen show no significant abnormality. Surgical clips are present in the gallbladder fossa from a cholecystectomy.No significant bone abnormality. Median sternotomy wires are present.IMPRESSION1. No no acute finding or significant abnormalityElectronically signed by: Harish Desai (Mar 06, 2023 15:30:59)
[2023-03-06 16:24] LABS: CREATINE KINASE 49 Units/L (26-192)
[2023-03-06] MEDS ORDERED: MORPHINE SULFATE INJ 2 MG INJ IVP PRN (17:24)
[2023-03-06] MEDS ORDERED: NS 1,000 ML IV 1,000 ML ONE (17:43)
[2023-03-06] MEDS: NS 1,000 ML IV 1,000 ML IV SCH (18:04)
[2023-03-06] MEDS ORDERED: DUONEB 0.5 MG/3 MG (3 mL) NEB PRN (18:05)
[2023-03-06] MEDS: NICOTINE PATCH TD SCH (19:32)
[2023-03-06] MEDS ORDERED: CONSULT PHARMACY - POTASSIUM & MAGNESIUM XX SCH (21:00)
[2023-03-06] MEDS ORDERED: K-DUR TAB 20 MEQ PO ONE (22:00)
--- NOTE | 2023-03-06 22:05 | EKG ---
Test Reason : chest pain rule out Blood Pressure : */* mmHG Vent. Rate : 73 BPM Atrial Rate : 73 BPM P-R Int : 174 ms QRS Dur : 158 ms QT Int : 450 ms P-R-T Axes : -7 213 7 degrees QTc Int : 495 ms Normal sinus rhythm Right bundle branch block Abnormal ECG When compared with ECG of 06-MAR-2023 12:38, (Unconfirmed) Left posterior fascicular block is no longer present Criteria for Inferior infarct are no longer present Confirmed by Red Lorenzo ([id number]) on 03/09/2023 7:29:36 AM Referred By: Confirmed By: Red Lorenzo
[2023-03-07 04:45] LABS: BASOPHILS # (AUTO) 0.1 X10^3/uL (0.0-0.1); BASOPHILS % (AUTO) 1.1 % (0.2-1.0); EOSINOPHILS # (AUTO) 0.3 x10^3/uL (0.0-0.2); EOSINOPHILS % (AUTO) 3.8 % (0.9-2.9); HEMOGLOBIN 12.7 g/dL (12.0-16.0); LYMPHOCYTES # (AUTO) 1.7 X10^3/uL (1.3-2.9); MEAN CORPUSCULAR HGB CONC 34.4 g/dL (33.0-35.0); MEAN CORPUSCULAR VOLUME 90.1 fL (80.0-100.0); MEAN PLATELET VOLUME 8.3 fL (7.4-11.0); MONOCYTES # (AUTO) 0.6 x10^3/uL (0.3-0.8); NEUTROPHILS # (AUTO) 4.3 x10^3/uL (2.2-4.8); NEUTROPHILS % (AUTO) 62.1 % (42.0-75.0); PLATELET COUNT 284 X10^3/uL (150.0-450.0); RED BLOOD COUNT 4.11 X10^6/uL (3.5-5.4); RED CELL DISTRIBUTION WIDTH 15.4 % (11.6-16.5); WHITE BLOOD COUNT 6.9 X10^3/uL (3.6-10.0)
[2023-03-07 05:00] LABS: ALANINE AMINOTRANSFERASE 17 Units/L (12-78); ALBUMIN 3.1 g/dL (3.4-5.0); ALKALINE PHOSPHATASE 95 Units/L (46-116); ASPARTATE AMINO TRANSFERASE 12 Units/L (15-37); BLOOD UREA NITROGEN 19 mg/dL (7-18); CALCIUM 8.6 mg/dL (8.5-10.1); CARBON DIOXIDE 31.5 mmol/L (21-32); CHLORIDE 99 mmol/L (98-107); CHOL/HDL RATIO 5.7 (0.0-5.0); CHOLESTEROL 188 mg/dL (0-200); COR CA(FOR HYPOALB) 9.3 mg/dL (8.5-10.1); COR NA(FOR HYPERGLY) 138 mmol/L (136-145); CREATININE 0.92 mg/dL (0.55-1.02); GLUCOSE 130 mg/dL (65-99); HDL CHOLESTEROL 33 mg/dL (40-60); MAGNESIUM 1.9 mg/dL (2.0-2.9); POTASSIUM 3.8 mmol/L (3.5-5.1); SODIUM 137 mmol/L (136-145); TOTAL PROTEIN 6.6 g/dL (6.4-8.2); TRIGLYCERIDES 293 mg/dL (0-150); eGFR NON BLACK RACES > 60 (>60)
[2023-03-07] MEDS ORDERED: CONSULT PHARMACY - POTASSIUM & MAGNESIUM XX SCH (06:00)
[2023-03-07] MEDS: NS 1,000 ML IV 1,000 ML IV SCH ×2 (07:11→19:30)
[2023-03-07] MEDS: NICOTINE PATCH TD SCH (08:10)
[2023-03-07] MEDS: MAG-OX TAB PO SCH ×2 (08:11→10:31)
[2023-03-07] MEDS: ASPIRIN PO SCH (08:11)
[2023-03-07] MEDS ORDERED: K-DUR TAB 20 MEQ PO ONE (09:00)
[2023-03-07] MEDS: ASPIRIN EC 81 MG PO SCH (10:40)
[2023-03-07] MEDS: PULMICORT NEB TX 0.5 MG NEB SCH ×2 (10:55→20:55)
[2023-03-07] MEDS: XOPENEX 1.25 MG/3 ML NEBULE NEB SCH ×3 (10:55→20:55)
--- NOTE | 2023-03-07 10:57 | DR.H&P ---
H&P History & Physical for Day of: H&P Date: 03/07/23 Chief Complaint Chief Complaint: chest pain, SOB Allergies Allergies Allergy/AdvReac Type Severity Reaction Status Date / Time latex Allergy Verified 03/06/23 12:45 History of Present Illness History of Present Illness: Ms King is a 67y/o female with a PMH of CAD s/p PCI, CABG, carotid stenosis, HTN, HLD and anxiety presented with worsening substernal chest pain with radiation to the back. She reports having exertional dyspnea for the past 2 months which has been worsening. She was treated for a URI couple we eks ago with antibiotics and steroids. She has also been doing nebs but it has not helped with her shortness of breath. She does smoke. She does not see Pulm. She reports coughing up phlegm. Denies fever or chills. No sick contact. She was admitted for chest pain rule out and dyspnea. Patient was noted to have sats in the low 90s, currently on 2L NC.Patient denies chest pain this morning. Labs/imaging reviewed - Trop x 2(-) - EKG: no acute ST changes - Chest CTA: no acute findings, no PE or dissection - ECHO 10/21/20: EF 75%, mild aortic valve thickening Plan: will get a CXR. Order resp panel. Patient wheezing on exam, start treatment for COPD exacerbation with solumedrol and azithromycin. Patient states albuterol gives her palpitations and she feels jittery, will switch to Xopenex. Add pulmicort. Sputum Cx. Assess O2 needs, walk test as per RT. Resume home medications. Monitor AM labs/imaging. Past Medical History Past Medical History: Arthritis, Coronary Artery Disease and Hypertension Past Surgical History Surgical History: Angioplasty/Stents, Appendectomy, Cholecystectomy and Hysterectomy Family History Family Medical History: Diabetes Mellitus, Cancer, [place], Coronary Artery Disease, Heart Failure, Sudden Cardiac and Hypertension Social History Does patient currently use any type of tobacco product: Yes Have you used tobacco products in the last 12 months: Yes Type of Tobacco Use: Cigarettes How many years tobacco product used: 50 Does any household member use tobacco: Yes Alcohol Use: Rarely Drug Use: None Medications Home Medications: Home Medications Medication Instructions Recorded Confirmed Type aspirin 81 mg tablet,delayed 81 mg PO DAILY 05/06/22 03/06/23 History release (Prakash Low Dose Aspirin) famotidine 20 mg tablet 20 mg PO BID 05/06/22 03/06/23 History hydrocortisone acetate 25 mg 25 mg CO BID PRN 03/06/23 03/06/23 History rectal suppository (Anusol-HC) constipation/hemorroids sennosides 8.6 mg-docusate sodium 1 tab-cap PO QHS 03/06/23 03/06/23 History 50 mg tablet (Senna Plus) Labs 03/07/23 04:05 03/07/23 04:05 Labs: Laboratory WBC 6.9 X10^3/uL (3.6-10.0) 03/07/23 04:05 RBC 4.11 X10^6/uL (3.5-5.4) 03/07/23 04:05 Hgb 12.7 g/dL (12.0-16.0) 03/07/23 04:05 Hct 37.0 % (36.0-47.0) 03/07/23 04:05 MCV 90.1 fL (80.0-100.0) 03/07/23 04:05 MCH 31.0 pg (27.0-34.0) 03/07/23 04:05 MCHC 34.4 g/dL (33.0-35.0) 03/07/23 04:05 RDW 15.4 % (11.6-16.5) 03/07/23 04:05 Plt Count 284 X10^3/uL (150.0-450.0) 03/07/23 04:05 MPV 8.3 fL (7.4-11.0) 03/07/23 04:05 Neut % (Auto) 62.1 % (42.0-75.0) 03/07/23 04:05 Lymph % (Auto) 25.0 % (21.0-51.0) 03/07/23 04:05 [place] % (Auto) 8.0 % (0.0-13.0) 03/07/23 04:05 Eos % (Auto) 3.8 % (0.9-2.9) H 03/07/23 04:05 Baso % (Auto) 1.1 % (0.2-1.0) H 03/07/23 04:05 Neut # (Auto) 4.3 x10^3/uL (2.2-4.8) 03/07/23 04:05 Lymph # (Auto) 1.7 X10^3/uL (1.3-2.9) 03/07/23 04:05 [place] # (Auto) 0.6 x10^3/uL (0.3-0.8) 03/07/23 04:05 Eos # (Auto) 0.3 x10^3/uL (0.0-0.2) H 03/07/23 04:05 Baso # (Auto) 0.1 X10^3/uL (0.0-0.1) 03/07/23 04:05 Absolute Nucleated RBC 0.1 /100WBC 03/07/23 04:05 D-Dimer 0.31 ug/ml (0.0-0.57) 03/06/23 12:45 Sodium 137 mmol/L (136-145) 03/07/23 04:05 Corrected Sodium 138 mmol/L (136-145) 03/07/23 04:05 Potassium 3.8 mmol/L (3.5-5.1) 03/07/23 04:05 Chloride 99 mmol/L (98-107) 03/07/23 04:05 Carbon Dioxide 31.5 mmol/L (21-32) 03/07/23 04:05 BUN 19 mg/dL (7-18) H 03/07/23 04:05 Creatinine 0.92 mg/dL (0.55-1.02) 03/07/23 04:05 Est GFR (MDRD) Af Amer > 60 (>60) 03/07/23 04:05 Est GFR (MDRD) Non-Af > 60 (>60) 03/07/23 04:05 Glucose 130 mg/dL (65-99) H 03/07/23 04:05 Calcium 8.6 mg/dL (8.5-10.1) 03/07/23 04:05 Corrected Calcium 9.3 mg/dL (8.5-10.1) 03/07/23 04:05 Magnesium 1.9 mg/dL (2.0-2.9) L 03/07/23 04:05 Total Bilirubin 0.10 mg/dL (0.2-1.0) L 03/07/23 04:05 AST 12 Units/L (15-37) L 03/07/23 04:05 ALT 17 Units/L (12-78) 03/07/23 04:05 Alkaline Phosphatase 95 Units/L (46-116) 03/07/23 04:05 Creatine Kinase 49 Units/L (26-192) 03/06/23 16:04 Troponin I High Sens < 4.0 ng/L (4.0-60.0) L 03/06/23 16:04 B-Natriuretic Peptide 9.4 pg/mL (0-79) 03/06/23 12:45 Total Protein 6.6 g/dL (6.4-8.2) 03/07/23 04:05 Albumin 3.1 g/dL (3.4-5.0) L 03/07/23 04:05 Globulin 3.5 g/dL (2.5-4.5) 03/07/23 04:05 Albumin/Globulin Ratio 0.9 Ratio (1.1-2.1) L 03/07/23 04:05 Triglycerides 293 mg/dL (0-150) H 03/07/23 04:05 Cholesterol 188 mg/dL (0-200) 03/07/23 04:05 LDL Cholesterol, Calc 96 mg/dL (0-100) 03/07/23 04:05 HDL Cholesterol 33 mg/dL (40-60) L 03/07/23 04:05 Cholesterol/HDL Ratio 5.7 (0.0-5.0) H 03/07/23 04:05 Review of Systems Constitutional: Malaise Eyes: No Symptoms Reported Respiratory: Cough, Shortness of Breath and Sputum Cardiovascular: Chest Pain Gastrointestinal: No Symptoms Reported Musculoskeletal: No Symptoms Reported Skin: No Symptoms Reported Neurological: No Symptoms Reported Physical Exam Vital Signs: Vital Signs Temperature 97.2 F Temperature 97.8 F Pulse Rate [Apical] 79 Pulse Rate [Apical] 83 Respiratory Rate 20 Respiratory Rate 20 Blood Pressure [Left Arm] 124/70 Blood Pressure [Left Arm] 120/68 O2 Sat by Pulse Oximetry 93 O2 Sat by Pulse Oximetry 96 Oriented: Normal Eyes: Normal Nose: Normal Respiratory: Wheezes Throughout Cardiovascular: Normal Auscultation: Bowel Sounds: Normal Tenderness: Normal Skin: Normal Musculoskeletal: Normal Psychiatric: Normal Mood Description: Calm Affect: Normal Speech Pattern: Clear and Appropriate Assessment/Plan (1) Chest pain in adult: Status: Acute (2) Acute exacerbation of chronic obstructive pulmonary disease: Status: Resolved (3) SOB (shortness of breath): Status: Acute (4) Current smoker: Status: Acute (5) CAD (coronary artery disease): Qualifiers: Associated angina: unspecified whether angina present Coronary Disease- Associated Artery/Lesion type: bypass graft, other Qualified Code(s): I25.810 - Atherosclerosis of coronary artery bypass graft(s) without angina pectoris Status: Acute (6) Hypothyroidism: Qualifiers: Hypothyroidism type: acquired Qualified Code(s): E03.9 - Hypothyroidism, unspecified Status: Acute Review H&P Reviewed: Yes Patient was examined?: Yes
[2023-03-07] MEDS: TOPROL XL PO SCH (11:02)
[2023-03-07] MEDS: ATIVAN TAB 1 MG PO PRN ×2 (11:02→22:53)
[2023-03-07] MEDS: ZITHROMAX INJ 500 MG VIAL 500 MG in NS 250 ML IV 250 ML IV SCH (11:02)
[2023-03-07] MEDS: SOLU-Medrol 40 MG VIAL IVP SCH (11:02)
[2023-03-07] MEDS: PLAVIX PO SCH (11:02)
--- NOTE | 2023-03-07 14:54 | RAD ---
HISTORYHypoxiaSTUDYPortable AP chestCOMPARISONApril 2022FINDINGSHeart size normal with sternal wires, clear lungs and pleural spaces.IMPRESSIONNo acute findings, CHF or pneumonia demonstrated.Electronically signed by: LORRAINE JAMES (Mar 07, 2023 14:52:49)
[2023-03-07] MEDS: PEPCID TAB 20 MG PO SCH (20:42)
[2023-03-07] MEDS ORDERED: ZETIA TAB 10 MG PO SCH (21:00)
[2023-03-08 05:12] LABS: BASOPHILS % (AUTO) 0.4 % (0.2-1.0); EOSINOPHILS % (AUTO) 0.6 % (0.9-2.9); HEMATOCRIT 33.8 % (36.0-47.0); HEMOGLOBIN 11.7 g/dL (12.0-16.0); LYMPHOCYTES # (AUTO) 1.6 X10^3/uL (1.3-2.9); LYMPHOCYTES % (AUTO) 20.7 % (21.0-51.0); MEAN CORPUSCULAR HGB CONC 34.4 g/dL (33.0-35.0); MEAN CORPUSCULAR VOLUME 90.2 fL (80.0-100.0); MEAN PLATELET VOLUME 8.1 fL (7.4-11.0); MONOCYTES # (AUTO) 0.6 x10^3/uL (0.3-0.8); MONOCYTES % (AUTO) 7.3 % (0.0-13.0); NEUTROPHILS # (AUTO) 5.5 x10^3/uL (2.2-4.8); PLATELET COUNT 264 X10^3/uL (150.0-450.0); RED BLOOD COUNT 3.75 X10^6/uL (3.5-5.4); RED CELL DISTRIBUTION WIDTH 15.3 % (11.6-16.5); WHITE BLOOD COUNT 7.8 X10^3/uL (3.6-10.0)
[2023-03-08 05:38] LABS: ALANINE AMINOTRANSFERASE 17 Units/L (12-78); ALBUMIN 2.8 g/dL (3.4-5.0); ALKALINE PHOSPHATASE 83 Units/L (46-116); ASPARTATE AMINO TRANSFERASE 11 Units/L (15-37); BLOOD UREA NITROGEN 13 mg/dL (7-18); CALCIUM 8.3 mg/dL (8.5-10.1); CARBON DIOXIDE 31.3 mmol/L (21-32); CHLORIDE 103 mmol/L (98-107); COR CA(FOR HYPOALB) 9.3 mg/dL (8.5-10.1); COR NA(FOR HYPERGLY) 139 mmol/L (136-145); CREATININE 0.77 mg/dL (0.55-1.02); GLUCOSE 127 mg/dL (65-99); POTASSIUM 3.9 mmol/L (3.5-5.1); SODIUM 138 mmol/L (136-145); TOTAL PROTEIN 5.9 g/dL (6.4-8.2); eGFR NON BLACK RACES > 60 (>60)
[2023-03-08] MEDS: XOPENEX 1.25 MG/3 ML NEBULE NEB SCH (05:50)
[2023-03-08] MEDS: PULMICORT NEB TX 0.5 MG NEB SCH (08:36)
[2023-03-08] MEDS: ASPIRIN PO SCH (08:53)
[2023-03-08] MEDS: PLAVIX PO SCH (08:54)
[2023-03-08] MEDS: PEPCID TAB 20 MG PO SCH (08:54)
[2023-03-08] MEDS: TOPROL XL PO SCH (08:54)
[2023-03-08] MEDS: ZITHROMAX INJ 500 MG VIAL 500 MG in NS 250 ML IV 250 ML IV SCH (08:55)
[2023-03-08] MEDS: SOLU-Medrol 40 MG VIAL IVP SCH (08:55)
[2023-03-08] MEDS: NICOTINE PATCH TD SCH (08:55)
[2023-03-08] MEDS ORDERED: HYDROCHLOROTHIAZIDE 25 MG TAB PO SCH (09:00)
[2023-03-08] MEDS ORDERED: SYNTHROID 50 mcg TAB PO SCH (09:00)
[2023-03-08] MEDS ORDERED: SYNTHROID 25 mcg TAB PO SCH (09:00)
[2023-03-08] MEDS ORDERED: ZYLOPRIM PO SCH (09:00)
[2023-03-08] MEDS: NS 1,000 ML IV 1,000 ML IV SCH (09:10)
[2023-03-08] MEDS: ASPIRIN EC 81 MG PO SCH (10:42)
[2023-03-08 12:36] VITALS: BP 137/71; PULSE 84; RESP 18; TEMP 97.6; O2SAT 96
== END 2023-03-08 12:25 | disposition home or self-care (01) ==
LOC: MED/SURG 12:22 → ER 12:22 → MED/SURG 17:38
PROVIDERS: ADMIT Family Medicine; ATTEND Internal Medicine
DX: R07.89 Other chest pain; F17.200 Nicotine dependence, unspecified, uncomplicated; I25.810 Atherosclerosis of coronary artery bypass graft(s) without angina pectoris; E03.8 Other specified hypothyroidism; Z20.822 Contact with and (suspected) exposure to COVID-19; R06.02 Shortness of breath; J44.1 Chronic obstructive pulmonary disease with (acute) exacerbation

== ENCOUNTER 2025-05-08 15:35 | Observation (INO) ==
[2025-05-08] MEDS ORDERED: TUSSIONEX PENNKINETIC SUSP PO PRN (16:36)
--- NOTE | 2025-05-08 17:13 | EKG ---
Test Reason : Pneumonia, COPD exacerbation Blood Pressure : */* mmHG Vent. Rate : 72 BPM Atrial Rate : 72 BPM P-R Int : 150 ms QRS Dur : 140 ms QT Int : 418 ms P-R-T Axes : 62 148 36 degrees QTc Int : 457 ms Normal sinus rhythm Right bundle branch block Left posterior fascicular block Bifascicular block Inferior infarct , age undetermined Abnormal ECG When compared with ECG of 20-MAR-2025 11:47, Left posterior fascicular block is now present T wave inversion no longer evident in Anterior leads Confirmed by Twin Taylor MD ([id number]) on 05/09/2025 5:48:27 AM Referred By: Confirmed By: Twin Taylor MD
[2025-05-08 17:21] VITALS: BMI 25.8
[2025-05-08] MEDS: NS 1,000 ML IV 1,000 ML IV SCH (17:39)
[2025-05-08 17:41] LABS: MEAN PLATELET VOLUME 8.3 fL (7.4-11.0); RED CELL DISTRIBUTION WIDTH 14.8 % (11.6-16.5)
[2025-05-08 18:12] LABS: CREATININE 0.95 mg/dL (0.55-1.02); eGFR NON BLACK RACES > 60 (>60)
[2025-05-08] MEDS ORDERED: PULMICORT NEB TX 0.5 MG NEB ONE (19:40)
[2025-05-08] MEDS ORDERED: DUONEB 0.5 MG/3 MG (3 mL) NEB ONE (19:40)
[2025-05-08] MEDS: PULMICORT NEB TX 0.5 MG NEB SCH (20:09)
[2025-05-08] MEDS: DUONEB 0.5 MG/3 MG (3 mL) NEB SCH (20:09)
[2025-05-08] MEDS: ROBITUSSIN DM PO SCH (21:32)
--- NOTE | 2025-05-08 23:56 | DR.H&P ---
H&P History & Physical for Day of: H&P Date: 05/08/25 Chief Complaint Chief Complaint: shortness of breath History of Present Illness History of Present Illness: Patient is a 69-year-old female with a past medical history of COPD, hypothyroidism, hyperlipidemia, CAD, presenting with shortness of breath that is progressively getting worse over the past few days. She reports having difficulty breathing with wheezing. Denies fever/chills. Labs/imaging: She was admitted as a direct admit after failing outpatient treatment. WBC 10.1, hemoglobin 13.6, platelets 321, D-dimer 0.53, sodium 133, potassium 4.5, creatinine 0.95, glucose 108, troponin negative, AIT pending, chest x-ray was ordered results are pending. Patient admitted for COPD exacerbation and pneumonia. She was started on IV Solu-Medrol 40 mg daily. Scheduled bronchodilators. IV Levaquin. Home medications will be restarted pending nursing confirmation. Supplemental oxygen as tolerated. Otherwise continue with current treatment plan. Continue closely monitor follow-up labs/imaging. Past Medical History Past Medical History: Anxiety, COPD, Coronary Artery Disease, Dyslipidemia, GERD, Gout, Hypothyroidism and ME Past Surgical History Surgical History: Angioplasty/Stents, Appendectomy, CABG/Valve Surgery, Carotid Endarterectomy and Hysterectomy Family History Family Medical History: Diabetes Mellitus, Cancer, [place], Coronary Artery Disease, Heart Failure and Hypertension Social History Type of Tobacco Use: Cigarettes Alcohol Use: None Drug Use: None Allergies Allergies Allergy/AdvReac Type Severity Reaction Status Date / Time latex Allergy Verified 04/23/25 15:19 [id number] Reductase AdvReac Severe Severe Verified 04/23/25 15:19 Inhibitor constipation and muscle aches Labs 05/08/25 17:18 05/08/25 17:18 Labs: Laboratory WBC 10.1 X10^3/uL (3.6-10.0) H 05/08/25 17:18 RBC 4.47 X10^6/uL (3.5-5.4) 05/08/25 17:18 Hgb 13.6 g/dL (12.0-16.0) 05/08/25 17:18 Hct 39.7 % (36.0-47.0) 05/08/25 17:18 MCV 88.9 fL (80.0-100.0) 05/08/25 17:18 MCH 30.3 pg (27.0-34.0) 05/08/25 17:18 MCHC 34.2 g/dL (33.0-35.0) 05/08/25 17:18 RDW 14.8 % (11.6-16.5) 05/08/25 17:18 Plt Count 321 X10^3/uL (150.0-450.0) 05/08/25 17:18 MPV 8.3 fL (7.4-11.0) 05/08/25 17:18 Neut % (Auto) 79.9 % (42.0-75.0) H 05/08/25 17:18 Lymph % (Auto) 15.8 % (21.0-51.0) L 05/08/25 17:18 [place] % (Auto) 3.2 % (0.0-13.0) 05/08/25 17:18 Eos % (Auto) 0.2 % (0.9-2.9) L 05/08/25 17:18 Baso % (Auto) 0.9 % (0.2-1.0) 05/08/25 17:18 Neut # (Auto) 8.1 x10^3/uL (2.2-4.8) H 05/08/25 17:18 Lymph # (Auto) 1.6 X10^3/uL (1.3-2.9) 05/08/25 17:18 [place] # (Auto) 0.3 x10^3/uL (0.3-0.8) 05/08/25 17:18 Eos # (Auto) 0.0 x10^3/uL (0.0-0.2) 05/08/25 17:18 Baso # (Auto) 0.1 X10^3/uL (0.0-0.1) 05/08/25 17:18 Absolute Nucleated RBC 0.1 /100WBC 05/08/25 17:18 D-Dimer 0.53 ug/ml (0.0-0.57) 05/08/25 17:18 Sodium 133 mmol/L (136-145) L 05/08/25 17:18 Corrected Sodium TNP 05/08/25 17:18 Potassium 4.5 mmol/L (3.5-5.1) 05/08/25 17:18 Chloride 96 mmol/L (98-107) L 05/08/25 17:18 Carbon Dioxide 32.1 mmol/L (21-32) H 05/08/25 17:18 BUN 21 mg/dL (7-18) H 05/08/25 17:18 Creatinine 0.95 mg/dL (0.55-1.02) 05/08/25 17:18 Est GFR (MDRD) Af Amer > 60 (>60) 05/08/25 17:18 Est GFR (MDRD) Non-Af > 60 (>60) 05/08/25 17:18 Glucose 108 mg/dL (65-99) H 05/08/25 17:18 Calcium 9.1 mg/dL (8.5-10.1) 05/08/25 17:18 Corrected Calcium TNP 05/08/25 17:18 Total Bilirubin 0.30 mg/dL (0.2-1.0) 05/08/25 17:18 AST 18 Units/L (15-37) 05/08/25 17:18 ALT 24 Units/L (12-78) 05/08/25 17:18 Alkaline Phosphatase 107 Units/L (46-116) 05/08/25 17:18 Troponin I High Sens < 4.0 ng/L (4.0-60.0) L 05/08/25 17:18 Total Protein 7.2 g/dL (6.4-8.2) 05/08/25 17:18 Albumin 3.6 g/dL (3.4-5.0) 05/08/25 17:18 Globulin 3.6 g/dL (2.5-4.5) 05/08/25 17:18 Albumin/Globulin Ratio 1.0 Ratio (1.1-2.1) L 05/08/25 17:18 Review of Systems Constitutional: No Symptoms Reported Eyes: No Symptoms Reported ENT: No Symptoms Reported Respiratory: Cough, Shortness of Breath and Wheezing Cardiovascular: No Symptoms Reported Gastrointestinal: No Symptoms Reported Genitourinary: No Symptoms Reported Musculoskeletal: No Symptoms Reported Skin: No Symptoms Reported Neurological: No Symptoms Reported Physical Exam Vital Signs: Vital Signs Temperature 98 F Pulse Rate [Brachial] 87 Pulse Rate 82 Respiratory Rate 17 Blood Pressure [Right Arm] 139/70 Blood Pressure 172/95 O2 Sat by Pulse Oximetry 94 O2 Sat by Pulse Oximetry 90 Oriented: Normal Eyes: Normal Ear: Normal Nose: Normal Throat: Normal Respiratory: Wheezes Throughout Cardiovascular: Normal : Normal Auscultation: Bowel Sounds: Normal Palpation: Normal Tenderness: Normal Skin: Normal Musculoskeletal: Normal Psychiatric: Normal Mood Description: Calm and Appropriate Affect: Normal Speech Pattern: Clear and Appropriate Assessment/Plan (1) Pneumonia: Qualifiers: Pneumonia type: due to unspecified organism Laterality: left Lung location: lower lobe of lung Qualified Code(s): J18.9 - Pneumonia, unspecified organism Status: Acute Plan: IV antibiotics AIT pending (2) Acute exacerbation of chronic obstructive pulmonary disease: Status: Resolved Plan: IV steroids scheduled bronchodilators wean/titrate supplemental oxygen as tolerated Review H&P Reviewed: Yes Patient was examined?: Yes
[2025-05-09] MEDS ORDERED: TESSALON PERLES PO PRN (03:08)
[2025-05-09 04:56] LABS: MEAN PLATELET VOLUME 8.2 fL (7.4-11.0); RED CELL DISTRIBUTION WIDTH 15.3 % (11.6-16.5)
[2025-05-09 05:04] LABS: COR CA(FOR HYPOALB) 9.5 mg/dL (8.5-10.1); COR NA(FOR HYPERGLY) 134 mmol/L (136-145); CREATININE 0.84 mg/dL (0.55-1.02); eGFR NON BLACK RACES > 60 (>60)
[2025-05-09] MEDS ORDERED: SYNTHROID 25 mcg TAB PO SCH (06:30)
--- NOTE | 2025-05-09 06:50 | RAD ---
EXAM: Two-view chest HISTORY: Pneumonia COMPARISON: 05/05/2025 FINDINGS: Patient is status post median sternotomy and CABG. Patient is rotated to the left. Heart size is normal. Lucía are normal. Lungs are mildly hyperinflated but free of acute infiltrates. No pleural effusion or pneumothorax identified. Bony thorax is unremarkable. IMPRESSION: Lungs hyperinflated but free of acute infiltrates. This is consistent with COPD in the appropriate clinical setting THIS IS AN ELECTRONICALLY VERIFIED FINAL REPORT 05/09/2025 6:46 AM - Electronically signed by Tyree Butcher MD
[2025-05-09] MEDS: LEVAQUIN PREMIX IV 750 MG 750 MG/150 ML BAG IV SCH (08:17)
[2025-05-09] MEDS ORDERED: ASTELIN NASAL SPRAY ENOSTRIL SCH (09:00)
[2025-05-09] MEDS ORDERED: ZYLOPRIM PO SCH (09:00)
[2025-05-09] MEDS: LOVENOX INJ 40 MG SYR SC SCH (09:23)
--- NOTE | 2025-05-09 10:36 | PCM.PROG ---
Progress Note Progress Note for Day of Date of Exam: 05/09/25 Subjective Subjective: Patient seen at bedside, no acute events overnight. She is currently admitted for COPD exacerbation and pneumonia. She remains on IV antibiotics and steroids. She is currently on 2 L nasal cannula. Labs/imaging reviewed: - WBC 9 hemoglobin 12.5 potassium 4 creatinine 0.84 - Chest x-ray concerning for COPD changes - AIT pending - Sputum culture pending Plan: Continue current treatment with IV antibiotics, steroids and bronchodilators. Follow pending cultures. Wean O2 as tolerated. Resume home medications as appropriate. Replace electrolytes as per protocol. Monitor a.m. labs and imaging. Past Medical Family Social History Allergies: Allergies latex Allergy (Verified 04/23/25 15:19) [id number]-[id number] Reductase Inhibitor Adverse Reaction (Severe, Verified 04/23/25 15:19) Severe constipation and muscle aches Patient refuses statin therapy Vital Signs and I&O's Vital Signs: Vital Signs Temperature 97.8 F Temperature 97.6 F Pulse Rate [Brachial] 80 Pulse Rate [Brachial] 78 Pulse Rate 75 Respiratory Rate 20 Respiratory Rate 19 Blood Pressure [Right Arm] 119/58 Blood Pressure [Right Arm] 113/56 O2 Sat by Pulse Oximetry 98 O2 Sat by Pulse Oximetry 97 O2 Sat by Pulse Oximetry 96 Intake and Output: Intake & Output 05/06/25 05/07/25 05/08/25 05/09/25 22:59 23:59 23:59 23:59 Intake Total 1062 / 1062 1072 / 1072 Balance 1062 / 1062 1072 / 1072 Physical Exam Oriented: Normal Eyes: Normal Ear: Normal Nose: Normal Throat: Normal Respiratory: Generalized, Diminished and Wheezes Cardiovascular: Normal : Normal Auscultation: Bowel Sounds: Normal Tenderness: Normal Skin: Normal Musculoskeletal: Normal Psychiatric: Normal Mood Description: Calm and Appropriate Affect: Normal Speech Pattern: Clear and Appropriate Laboratory and Diagnostics 05/09/25 04:27 05/09/25 04:27 Labs: 05/09/25 05:00 Sputum - Expectorated Sputum - Final Laboratory WBC 9.0 X10^3/uL (3.6-10.0) 05/09/25 04:27 RBC 4.06 X10^6/uL (3.5-5.4) 05/09/25 04:27 Hgb 12.5 g/dL (12.0-16.0) 05/09/25 04:27 Hct 36.6 % (36.0-47.0) 05/09/25 04:27 MCV 90.2 fL (80.0-100.0) 05/09/25 04:27 MCH 30.9 pg (27.0-34.0) 05/09/25 04: MCHC 34.3 g/dL (33.0-35.0) 05/09/25 04: RDW 15.3 % (11.6-16.5) 05/09/25 04:27 Plt Count 324 X10^3/uL (150.0-450.0) 05/09/25 04:27 MPV 8.2 fL (7.4-11.0) 05/09/25 04:27 Neut % (Auto) 83.0 % (42.0-75.0) H 05/09/25 04:27 Lymph % (Auto) 12.5 % (21.0-51.0) L 05/09/25 04:27 [place] % (Auto) 4.0 % (0.0-13.0) 05/09/25 04:27 Eos % (Auto) 0.0 % (0.9-2.9) L 05/09/25 04:27 Baso % (Auto) 0.5 % (0.2-1.0) 05/09/25 04:27 Neut # (Auto) 7.4 x10^3/uL (2.2-4.8) H 05/09/25 04:27 Lymph # (Auto) 1.1 X10^3/uL (1.3-2.9) L 05/09/25 04:27 [place] # (Auto) 0.4 x10^3/uL (0.3-0.8) 05/09/25 04:27 Eos # (Auto) 0.0 x10^3/uL (0.0-0.2) 05/09/25 04:27 Baso # (Auto) 0.0 X10^3/uL (0.0-0.1) 05/09/25 04:27 Absolute Nucleated RBC 0.1 /100WBC 05/09/25 04:27 D-Dimer 0.53 ug/ml (0.0-0.57) 05/08/25 17:18 Sodium 134 mmol/L (136-145) L 05/09/25 04:27 Corrected Sodium 134 mmol/L (136-145) L 05/09/25 04:27 Potassium 4.0 mmol/L (3.5-5.1) 05/09/25 04:27 Chloride 98 mmol/L (98-107) 05/09/25 04:27 Carbon Dioxide 31.5 mmol/L (21-32) 05/09/25 04:27 BUN 18 mg/dL (7-18) 05/09/25 04:27 Creatinine 0.84 mg/dL (0.55-1.02) 05/09/25 04:27 Est GFR (MDRD) Af Amer > 60 (>60) 05/09/25 04:27 Est GFR (MDRD) Non-Af > 60 (>60) 05/09/25 04:27 Glucose 118 mg/dL (65-99) H 05/09/25 04:27 Calcium 8.9 mg/dL (8.5-10.1) 05/09/25 04:27 Corrected Calcium 9.5 mg/dL (8.5-10.1) 05/09/25 04:27 Total Bilirubin 0.20 mg/dL (0.2-1.0) 05/09/25 04:27 AST 11 Units/L (15-37) L 05/09/25 04:27 ALT 20 Units/L (12-78) 05/09/25 04:27 Alkaline Phosphatase 109 Units/L (46-116) 05/09/25 04:27 Troponin I High Sens < 4.0 ng/L (4.0-60.0) L 05/08/25 17:18 Total Protein 6.8 g/dL (6.4-8.2) 05/09/25 04:27 Albumin 3.3 g/dL (3.4-5.0) L 05/09/25 04:27 Globulin 3.5 g/dL (2.5-4.5) 05/09/25 04:27 Albumin/Globulin Ratio 0.9 Ratio (1.1-2.1) L 05/09/25 04:27 Plan (1) Pneumonia: Status: Acute Qualifiers: Laterality: left Lung location: lower lobe of lung Pneumonia type: due to unspecified organism Qualified Code(s): J18.9 - Pneumonia, unspecified organism Plan: IV antibiotics AIT pending (2) Acute exacerbation of chronic obstructive pulmonary disease: Status: Resolved Plan: IV steroids scheduled bronchodilators wean/titrate supplemental oxygen as tolerated (3) Tobacco user: Status: Chronic (4) COPD (chronic obstructive pulmonary disease): Status: Chronic (5) Hyperlipidemia: Status: Chronic Qualifiers: Hyperlipidemia type: other hyperlipidemia Qualified Code(s): E78.49 - Other hyperlipidemia
[2025-05-09 12:06] VITALS: RESP 18
[2025-05-09] MEDS: ASPIRIN EC 81 MG PO SCH (16:43)
[2025-05-09] MEDS: MAALOX or MYLANTA PO PRN (16:43)
[2025-05-09] MEDS: PLAVIX PO SCH (16:48)
[2025-05-09] MEDS: PEPCID TAB 20 MG PO SCH (20:22)
[2025-05-09] MEDS: ZOVIRAX PO SCH (20:22)
[2025-05-09] MEDS: TOPROL XL PO SCH (20:22)
[2025-05-09] MEDS ORDERED: DULCOLAX TAB EC 5 MG PO SCH (21:00)
[2025-05-09] MEDS ORDERED: MACROBID CAP 100 MG EXT REL PO SCH (21:00)
[2025-05-09] MEDS: ATIVAN TAB 1 MG PO PRN (22:30)
[2025-05-10 05:43] LABS: MEAN PLATELET VOLUME 7.9 fL (7.4-11.0); RED CELL DISTRIBUTION WIDTH 14.8 % (11.6-16.5)
[2025-05-10 05:56] LABS: COR CA(FOR HYPOALB) 9.5 mg/dL (8.5-10.1); CREATININE 0.94 mg/dL (0.55-1.02); eGFR NON BLACK RACES > 60 (>60)
[2025-05-10] MEDS ORDERED: LEXAPRO ONE (08:03)
[2025-05-10] MEDS: LEXAPRO PO SCH (08:53)
[2025-05-10] MEDS: PROTONIX TAB 40 MG PO SCH (08:53)
[2025-05-10] MEDS: ZYLOPRIM PO SCH (08:57)
[2025-05-10 09:08] VITALS: BP 126/90; PULSE 91; TEMP 97.6; O2SAT 95
--- NOTE | 2025-05-14 16:49 | W.DIS.FURT ---
Summary of Discharge Discharge Summary of Date Date of Exam: 05/10/25 Admission Date Date of Admission: 05/08/25 Admission Diagnosis Hospital Course: Patient is a 69-year-old female admitted for COPD exacerbation and pneumonia. Her hospital/treatment course included: IV antibiotics and steroids. She did require 2 L nasal cannula and was discharged with home oxygen. She responded well to treatments and symptoms significantly improved. AIT positive for rhino/enterovirus. She was discharged in stable condition. Prescribed medrol dose pack and duonebs. Instructed follow-up PCP in 3 to 5 days. Vital Signs: Vital Signs (72 hours) 05/08/25 14:48 05/08/25 16:36 05/08/25 17:47 Temperature Pulse Rate Pulse Rate [Brachial] Respiratory Rate Blood Pressure 172/95 172/95 Blood Pressure [Left Arm] Blood Pressure [Right Arm] O2 Sat by Pulse Oximetry Oxygen Delivery Method Nasal Cannula Nasal Cannula Oxygen Flow Rate 2 2 FIO2% 28 05/08/25 19:53 05/08/25 20:09 05/08/25 20:51 Temperature 98 F Pulse Rate 82 Pulse Rate [Brachial] 87 Respiratory Rate 17 Blood Pressure Blood Pressure [Left Arm] Blood Pressure [Right Arm] 139/70 O2 Sat by Pulse Oximetry 90 L 94 L Oxygen Delivery Method Nasal Cannula Nasal Cannula Oxygen Flow Rate 2 2 FIO2% 28 05/09/25 00:00 05/09/25 00:41 05/09/25 03:44 Temperature 97.6 F 97.6 F Pulse Rate 81 Pulse Rate [Brachial] 76 78 Respiratory Rate 19 19 Blood Pressure Blood Pressure [Left Arm] Blood Pressure [Right Arm] 132/61 113/56 O2 Sat by Pulse Oximetry 94 L 95 96 Oxygen Delivery Method Nasal Cannula Nasal Cannula Oxygen Flow Rate 2 2 FIO2% 05/09/25 05:10 05/09/25 07:40 05/09/25 08:21 Temperature 97.8 F Pulse Rate 75 Pulse Rate [Brachial] 80 Respiratory Rate 20 Blood Pressure Blood Pressure [Left Arm] Blood Pressure [Right Arm] 119/58 O2 Sat by Pulse Oximetry 97 98 Oxygen Delivery Method Nasal Cannula Nasal Cannula Oxygen Flow Rate 2 2 FIO2% 28 05/09/25 08:21 05/09/25 12:00 05/09/25 15:59 Temperature 97.8 F 97.7 F Pulse Rate 86 Pulse Rate [Brachial] 82 97 H Respiratory Rate 18 18 Blood Pressure Blood Pressure [Left Arm] Blood Pressure [Right Arm] 134/70 154/71 O2 Sat by Pulse Oximetry 94 L 96 95 Oxygen Delivery Method Nasal Cannula Nasal Cannula Oxygen Flow Rate 2 2 FIO2% 05/09/25 20:00 05/09/25 21:05 05/10/25 00:00 Temperature 98.6 F 97.9 F Pulse Rate 93 H Pulse Rate [Brachial] 87 100 H Respiratory Rate 18 18 Blood Pressure Blood Pressure [Left Arm] 131/77 Blood Pressure [Right Arm] 159/83 O2 Sat by Pulse Oximetry 99 95 97 Oxygen Delivery Method Nasal Cannula Nasal Cannula Oxygen Flow Rate 2 2 FIO2% 05/10/25 00:50 05/10/25 04:00 05/10/25 05:00 Temperature 98.4 F Pulse Rate 98 H 96 H Pulse Rate [Brachial] 95 H Respiratory Rate 18 Blood Pressure Blood Pressure [Left Arm] Blood Pressure [Right Arm] 131/72 O2 Sat by Pulse Oximetry 98 97 97 Oxygen Delivery Method Nasal Cannula Oxygen Flow Rate 2 FIO2% 05/10/25 08:00 05/10/25 08:05 Temperature 97.6 F Pulse Rate Pulse Rate [Brachial] 91 H Respiratory Rate 18 Blood Pressure Blood Pressure [Left Arm] Blood Pressure [Right Arm] 126/90 O2 Sat by Pulse Oximetry 95 Oxygen Delivery Method Nasal Cannula Room Air Oxygen Flow Rate 2 2 FIO2% 28 Labs: Laboratory Last Values WBC 9.6 X10^3/uL (3.6-10.0) 05/10/25 05:16 RBC 4.01 X10^6/uL (3.5-5.4) 05/10/25 05:16 Hgb 12.3 g/dL (12.0-16.0) 05/10/25 05:16 Hct 36.2 % (36.0-47.0) 05/10/25 05:16 MCV 90.1 fL (80.0-100.0) 05/10/25 05:16 MCH 30.6 pg (27.0-34.0) 05/10/25 05:16 MCHC 33.9 g/dL (33.0-35.0) 05/10/25 05:16 RDW 14.8 % (11.6-16.5) 05/10/25 05:16 Plt Count 289 X10^3/uL (150.0-450.0) 05/10/25 05:16 MPV 7.9 fL (7.4-11.0) 05/10/25 05:16 Neut % (Auto) 72.4 % (42.0-75.0) 05/10/25 05:16 Lymph % (Auto) 21.8 % (21.0-51.0) 05/10/25 05:16 [place] % (Auto) 4.8 % (0.0-13.0) 05/10/25 05:16 Eos % (Auto) 0.4 % (0.9-2.9) L 05/10/25 05:16 Baso % (Auto) 0.6 % (0.2-1.0) 05/10/25 05:16 Neut # (Auto) 6.9 x10^3/uL (2.2-4.8) H 05/10/25 05:16 Lymph # (Auto) 2.1 X10^3/uL (1.3-2.9) 05/10/25 05:16 [place] # (Auto) 0.5 x10^3/uL (0.3-0.8) 05/10/25 05:16 Eos # (Auto) 0.0 x10^3/uL (0.0-0.2) 05/10/25 05:16 Baso # (Auto) 0.1 X10^3/uL (0.0-0.1) 05/10/25 05:16 Absolute Nucleated RBC 0.0 /100WBC 05/10/25 05:16 D-Dimer 0.53 ug/ml (0.0-0.57) 05/08/25 17:18 Sodium 133 mmol/L (136-145) L 05/10/25 05:16 Corrected Sodium TNP 05/10/25 05:16 Potassium 3.9 mmol/L (3.5-5.1) 05/10/25 05:16 Chloride 96 mmol/L (98-107) L 05/10/25 05:16 Carbon Dioxide 28.2 mmol/L (21-32) 05/10/25 05:16 BUN 13 mg/dL (7-18) 05/10/25 05:16 Creatinine 0.94 mg/dL (0.55-1.02) 05/10/25 05:16 Est GFR (MDRD) Af Amer > 60 (>60) 05/10/25 05:16 Est GFR (MDRD) Non-Af > 60 (>60) 05/10/25 05:16 Glucose 107 mg/dL (65-99) H 05/10/25 05:16 Calcium 8.9 mg/dL (8.5-10.1) 05/10/25 05:16 Corrected Calcium 9.5 mg/dL (8.5-10.1) 05/10/25 05:16 Total Bilirubin 0.20 mg/dL (0.2-1.0) 05/10/25 05:16 AST 14 Units/L (15-37) L 05/10/25 05:16 ALT 15 Units/L (12-78) 05/10/25 05:16 Alkaline Phosphatase 97 Units/L (46-116) 05/10/25 05:16 Troponin I High Sens < 4.0 ng/L (4.0-60.0) L 05/08/25 17:18 Total Protein 6.4 g/dL (6.4-8.2) 05/10/25 05:16 Albumin 3.2 g/dL (3.4-5.0) L 05/10/25 05:16 Globulin 3.2 g/dL (2.5-4.5) 05/10/25 05:16 Albumin/Globulin Ratio 1.0 Ratio (1.1-2.1) L 05/10/25 05:16 Reason For Visit: PNUEMONIA, ACUTE COPD EXACERBATION Discharge Date Discharge Date: 05/10/25 Discharge Diagnosis All Active Problems (Updated 05/09/25 @ 10:35 by Vanessa Cardenas MD) Pneumonia (Acute) Fever (Acute) Tobacco user (Chronic) Cough (Acute) COPD (chronic obstructive pulmonary disease) (Chronic) Upper respiratory tract infection (Acute) Cough productive of yellow sputum (Acute) Postoperative visit (Acute) Leg length discrepancy (Chronic) Varicose vein of leg (Chronic) Seasonal and perennial allergic rhinoconjunctivitis (Chronic) PVD (peripheral vascular disease) with claudication (Chronic) Major depressive disorder, recurrent episode with anxious distress (Chronic) Osteoporosis (Chronic) Anemia (Chronic) Arthralgia of multiple joints (Chronic) Family history of diabetes mellitus type II (Chronic) Encounter for preventative adult health care examination (Chronic) Degeneration of intervertebral disc (Chronic) Paresthesia and pain of both upper extremities (Chronic) Hyperlipidemia (Chronic) Rectal bleeding (Acute) Carotid arterial disease (Chronic) Positive CARLEY (antinuclear antibody) (Chronic) Herpetic lesion (Chronic) Pain in female genitalia on intercourse (Chronic) Difficulty defecating (Chronic) Low magnesium level (Chronic) History of hypokalemia (Chronic) Hypokalemia (Chronic) Squamous cell carcinoma (Chronic) CAD (coronary artery disease) (Chronic) Chest pain in adult (Chronic) Current smoker (Chronic) Gout (Chronic) Pain of left hip joint (Chronic) Low back pain radiating to left lower extremity (Chronic) Radicular pain of left lower extremity (Chronic) Smokes less than 1 pack a day with greater than 30 pack year history (Chronic) Diverticulosis of colon (Chronic) Constipation (Chronic) Hiatal hernia (Acute) Neuropathic pain (Chronic) RBBB (Acute) Left posterior fascicular block (LPFB) (Acute) Insomnia (Acute) Chronic lower gastrointestinal bleeding (Chronic) Rectal bleeding (Chronic) Chronic generalized abdominal pain (Chronic) 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 Pt is to keep follow up appointment as instructed and take medications as ordered. Discharge Medications Discharge Medications: latex Allergy (Verified 04/23/25 15:19) [id number] Reductase Inhibitor Adverse Reaction (Severe, Verified 04/23/25 15:19) Severe constipation and muscle aches CONTINUE taking the following medications azelastine 137 mcg (0.1 %) nasal spray 2 spray intranasal BID 05/09/25 [History] benzonatate 100 mg capsule 100 mg PO TID PRN 05/09/25 [History] bisacodyl 5 mg tablet,delayed release (Dulcolax (bisacodyl)) 5 mg PO QHS 05/09/25 [History] ergocalciferol (vitamin D2) 25,000 unit capsule 50,000 unit PO WEEKLY 05/09/25 [History] levothyroxine 25 mcg tablet 75 mcg PO QDAY Hypothyroidism 05/09/25 [History] levothyroxine 50 mcg tablet 50 mcg PO QDAY 05/09/25 [History] Discharge Plan Discharge Plan Hospital Course: Patient is a 69-year-old female admitted for COPD exacerbation and pneumonia. Her hospital/treatment course included: IV antibiotics and steroids. She did require 2 L nasal cannula and was discharged with home oxygen. She responded well to treatments and symptoms significantly improved. AIT positive for rhino/enterovirus. She was discharged in stable condition. Prescribed medrol dose pack and duonebs. Instructed follow-up PCP in 3 to 5 days. Patient Disposition: 01 HOME, SELF-CARE Condition: Stable Health Concerns: Post Hospitalization: new medications and changes needed to prevent readmission or further decline. Pt educated and given instructions on all concerns. Care Plan Goals: Problem: Respiratory Complications Goal: Improved Uncomplicated Respiratory Status Instructions: Follow provided instructions. Follow up with primary physician as directed. Contact primary care physician or report to the closest Emergency Room if condition worsens. Plan of Treatment: Continue with present treatment and follow up plan. Pt is to keep follow up appointment as instructed and take medications as ordered. Prescriptions: New ipratropium-albuterol 0.5 mg-3 mg(2.5 mg base)/3 mL Solution For Nebulization 3 ml INHALATION Q4H PRN (Reason: Shortness Of Breath) 7 Days Qty: 126 0RF methylprednisolone [Medrol ([place]oni)] 4 mg Tablets,Dose Pack See Rx Instructions .ROUTE .COMPLEX Qty: 1 0RF Rx Instructions: orally per package directions Continued nitrofurantoin macrocrystal 50 mg capsule 50 mg PO QPM Qty: 90 0RF lorazepam 1 mg tablet 1 mg PO .COMPLEX MDD 2 PRN (Reason: insomnia/anxiety) 30 Days Qty: 60 0RF Rx Instructions: 1 mg orally 1/2 tab twice daily & 1 @ bedtime if needed for rest/anxiety PRN; acyclovir 400 mg tablet 400 mg PO BID Qty: 60 0RF prednisone 5 mg tablet 5 mg PO BID MDD 2 7 Days Qty: 14 0RF allopurinol 300 mg tablet 300 mg PO QDAY 90 Days Qty: 90 0RF aspirin [Prakash Low Dose Aspirin] 81 mg tablet,delayed release (DR/EC) 81 mg PO DAILY 90 Days Qty: 90 1RF clopidogrel 75 mg tablet 75 mg PO DAILY MDD 1 90 Days Qty: 90 1RF hydrochlorothiazide 25 mg tablet 25 mg PO DAILY MDD 1 PRN (Reason: HTN, edema) 90 Days Qty: 90 1RF escitalopram oxalate 5 mg tablet 5 mg PO QDAY 90 Days Qty: 90 1RF metoprolol succinate 25 mg tablet extended release 24 hr 12.5 mg PO BID 90 Days Qty: 180 1RF pantoprazole 20 mg tablet,delayed release (DR/EC) 20 mg PO QDAY 90 Days Qty: 90 1RF potassium chloride 10 mEq capsule, extended release 20 meq PO BID MDD 4 90 Days Qty: 360 1RF diclofenac sodium [Voltaren Arthritis Pain] 1 % gel 2 g topical .tid Qty: 100 0RF Rx Instructions: apply to right knee 3x per day ergocalciferol (vitamin D2) 25,000 unit Capsule 50,000 unit PO WEEKLY azelastine 137 mcg (0.1 %) Delta,Non-Aerosol 2 spray INTRANASAL BID Rx Instructions: administer into each nostril levothyroxine 25 mcg tablet 75 mcg PO QDAY MDD 1/2 tablet with 50 mcg tablet benzonatate 100 mg capsule 100 mg PO TID PRN bisacodyl [Dulcolax (bisacodyl)] 5 mg Tablet,Delayed Release (Dr/Ec) 5 mg PO QHS levothyroxine 50 mcg Tablet 50 mcg PO QDAY Orders to Discharge Patient Discharge Orders: Discharge (Routine); Ordered 05/10/25 Ordered By: Jitendra Baez Follow ups/Referrals Follow ups/Referrals: [facility] [Other] Referral Note: Home oxygen Jitendra Baez MD [Primary Care Provider, MEDICAL] - 05/17/25 1:20 pm Instructions Instructions: Steps to Quit Smoking, [id number], Chronic Obstructive Pulmonary Disease Exacerbation, Home Oxygen Use, Adult, Living With COPD, Community-Acquired Pneumonia, Adult, [id number] Stand Alone Forms: Find Help Web Site, Post Hospital Follow Up Care Print Language: ROMANSH
== END 2025-05-10 11:20 | disposition home or self-care (01) ==
LOC: MED/SURG
PROVIDERS: ADMIT Family Medicine; ATTEND Family Medicine